=== PATIENT | male | born 1975 | race African-American/Black ===

== ENCOUNTER → 2019-08-04 14:42 | Outpatient (CLI) | payer OTHER, MEDICAID, SELFPAY ==
--- NOTE | ~2019-08-04 | MR_ITS ---
EXAMINATION: MR lumbar spine wo/w con DATE: 08/04/2019 19:04 INDICATION: Lumbago. TECHNIQUE: Magnetic resonance imaging (MRI) of the lumbar spine was performed without and with 18 L M ultiHance intravenous contrast. Sequences included sagittal T2-weighted FSE, sagittal T2-weighted FS FSE, and sagittal and axial T1-weighted FSE. Postcontrast sequences included axial T2-weighted FSE an d axial and sagittal T1-weighted FS FSE. COMPARISON: None FINDINGS: There is 11 degrees dextroscoliosis of thoracolumbar spine. Partially visualized are change s of posterior fusion procedure in thoracic spine. Vertebral body heights are normal. Intervertebral disc heights are normal in lumbar spine. The distal spinal cord signal intensity is normal. The conus medullaris is at L1-L2. The following disc levels are specifically discussed: L1-L2: The disc does not extend beyond the endplate margin. There is severe right and moderate left f acet joint osteoarthritis. There is no neural foraminal stenosis. There is no central canal stenosis. L2-L3: The disc does not extend beyond the endplate margin. There is mild bilateral facet joint osteo arthritis. There is no neural foraminal stenosis. There is no central canal stenosis. L3-L4: The disc does not extend beyond the endplate margin. There is moderate bilateral facet joint o steoarthritis. There is no neural foraminal stenosis. There is no central canal stenosis. L4-L5: The disc does not extend beyond the endplate margin. There is mild bilateral facet joint osteo arthritis. There is no neural foraminal stenosis. There is no central canal stenosis. L5-S1: The disc does not extend beyond the endplate margin. There is moderate bilateral facet joint o steoarthritis. There is mild bilateral neural foraminal stenosis. There is no central canal stenosis. IMPRESSION: 1. Mild lumbar spondylosis. 2. Thoracolumbar dextroscoliosis. Reviewed, dictated and finalized at location A. 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
--- NOTE | ~2019-08-04 | MR_ITS ---
EXAMINATION: MR thoracic spine wo/w con EXAM DATE: 08/04/2019 19:03 INDICATION: Thoracic pain. TECHNIQUE: Multi-sequential, multiplanar MR images of the thoracic spine were obtained without contra st. Sagittal T1, T2, T2 fat saturation, axial T2 weighted images reviewed. Axial T1 weighted sequenc e. Patient was then injected with 18 mL Multihance intravenous contrast and reimaged. Postcontrast axial and sagittal T1-weighted fat saturation sequences were obtained. Correlation is made to CT ches t 08/03/2017. FINDINGS: There is severe thoracic scoliosis which has been treated with Zaldivar rods. There is la rge right lateral paraspinal loculated fluid collection, could be a meningocele or loculated pleural effusion. No evidence of solid component. This is incompletely imaged but based on prior CT of to abo ut 12 cm. This has been a chronic finding and has likely been previously worked up. There is large am ount of artifact from the Zaldivar rods, cannot identify a definite direct communication between th is fluid and the spinal canal. There is fatty infiltration of the paraspinal musculature, atrophy. There is also ill-defined mass in the right posterior paraspinal subcutaneous fat which demonstrates enhancement, insinuates within the fat, and also with skin thickening. Difficult to measure this give n that there is no discrete mass, but its approximately 10 cm in diameter by about 2.5 cm in thicknes s. Could be peripheral nerve sheath tumor, vascular malformation, scarring from surgery. This is also a chronic finding. IMPRESSION: 1. Severe scoliosis with limitations from cervicothoracic Zaldivar rods. 2. Right lateral paraspinal, intrathoracic cystic mass could be large meningocele, loculated pleural effusion. Chronic. 3. Large right posterior thoracic ill-defined subcutaneous enhancing mass, could be scar tissue, per ipheral nerve sheath tumor, vascular malformation. Chronic. Reviewed, dictated and finalized at location B. 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 Severe scoliosis with limitations from cervicothoracic Zaldivar rods. 2. Right lateral paraspinal, intrathoracic cystic mass could be large meningoc lilli, loculated pleural effusion. Chronic. 3. Large right posterior thoracic ill-defined subcutaneous enhancing mass, cou ld be scar tissue, peripheral nerve sheath tumor, vascular malformation. Chroni c.
[2019-08-04 15:27] LABS: Blood Urea Nitrogen 8 mg/dL (8-26); Estimated Glomerular Filt Rate > 60
== END ==
PROVIDERS: PCP Internal Medicine; Visit Provider Nurse Practitioner Family
DX: M54.5 Low back pain (principal); M41.9 Scoliosis, unspecified; M47.896 Other spondylosis, lumbar region
CPT/HCPCS: 72157; 72158; A9577

== ENCOUNTER 2020-04-03 09:58 | Outpatient (CLI) | payer MEDICARE, MEDICAID, SELFPAY ==
--- NOTE | ~2020-04-03 | US_ITS ---
EXAMINATION: US soft tissue chest DATE: 04/03/2020 10:33 INDICATION: Left anterior chest wall mass. TECHNIQUE: Multiple grayscale and Doppler ultrasound images of the left anterior chest wall were obta ined. COMPARISON: Chest CT 08/03/2017 FINDINGS: There is no abnormal mass in the left anterior chest wall in the patient's area of concern. IMPRESSION: 1. No abnormal mass in the left anterior chest wall in the patient's area of concern. Reviewed, dictated and finalized at location A. IMPRESSION: 1. No abnormal mass in the left anterior chest wall in the patient's area of co ncern.
== END 2020-04-03 09:59 | disposition home or self-care (01) ==
PROVIDERS: PCP Internal Medicine; Visit Provider Internal Medicine
DX: R22.2 Localized swelling, mass and lump, trunk (principal)
CPT/HCPCS: 76604

== ENCOUNTER 2021-04-16 19:01 | Emergency (ER) | payer MEDICARE, MEDICAID, SELFPAY ==
--- NOTE | ~2021-04-16 | XR_ITS ---
XR chest 2V 04/16/2021 19:37 Indication: Intermittent shortness of breath. COPD. Hypertension. Procedure: 2 view chest Comparison: 06/15/2017 Findings: There are Zaldivar rods with scoliosis. Chronic deformity of the chest cavity. There is a large right pleural effusion with underlying compressive atelectasis. The previously identified mass in the right lung is obscured by pleural effusion. Neural stimulator leads overlying the thoracic sp ine. Impression: 1: Large right pleural effusion with underlying compressive atelectasis. Reviewed, dictated and finalized at location A. Impression: 1: Large right pleural effusion with underlying compressive atelectasis.
[2021-04-16 19:07] VITALS: BP 124/78; PULSE 135; RESP 18; TEMP 36.7; O2SAT 96
--- NOTE | 2021-04-16 19:10 | ECG_ITS ---
Measurements Intervals [place] Rate: 133 P: 49 PA: 147 QRS: -12 QRSD: 89 T: 57 QT: 303 QTc: 452 Interpretive Statements SINUS TACHYCARDIA INCOMPLETE RIGHT BUNDLE BRANCH BLOCK ABNORMAL ECG Electronically Signed On 04-16-2021 19:53:03 CDT by Nirmal Montague D.O.
[2021-04-16 19:33] LABS: Basophils Absolute Auto 0.1 K/mm3 (0.0-0.1); Basophils Percent Auto 0.2 % (0.2-1.2); Eosinophils Percent Auto 0.1 % (0-4.4); Hematocrit 33.1 % (42.0-52.0); Hemoglobin 10.9 g/dL (14.0-18.0); Immature Granulocyte Absolute 0.26 K/mm3 (0.00-0.031); Lymphocytes Absolute Auto 1.58 K/mm3 (0.9-3.2); Lymphocytes Percent Auto 6.1 % (18.3-44.2); Mean Corpuscular HGB Conc 32.9 g/dl (32-36); Mean Corpuscular Hemoglobin 23.7 pg (26-34); Mean Corpuscular Volume 72.1 fl (80-100); Mean Platelet Volume 9.2 fl (7.4-10.4); Monocytes Absolute Auto 3.8 K/mm3 (0.1-0.6); Monocytes Percent Auto 14.7 % (2.6-8.5); Neutrophils Absolute Auto 20.2 K/mm3 (1.3-6.7); Neutrophils Percent Auto 77.9 % (45.5-73.1); Platelet Count Result 355 k/mm3 (150-375); Red Blood Count 4.59 M/mm3 (4.6-6.20); White Blood Count 25.9 K/mm3 (4.5-10.0)
--- NOTE | 2021-04-16 19:36 | PC.NURSE ---
Please call family member at [phone] Pt states I think
[2021-04-16 19:52] LABS: Anion Gap 6 mmol/L (8-16); Blood Urea Nitrogen 14 mg/dL (9-20); Carbon Dioxide 31 mmol/L (22-30); Chloride 97 mmol/L (98-107); Estimated CRCL calculation 99 ml/min; Estimated Glomerular Filt Rate > 60; Glucose 105 mg/dL (65-110); Potassium 4.3 mmol/L (3.4-5.0); Sodium 134 mmol/L (137-145)
--- NOTE | 2021-04-16 21:28 | PC.NURSE ---
pt. up to front end specialist asking home much longer. RN updated pt. we are working on getting beds available. pt. states I cannot wait that long I will come back in the morning. Pt. wheeled self out of triage in personal wheelchair. pt. in NAD upon departure and advised to seek medical tx. if ss worsen.
== END 2021-04-17 03:30 | disposition left against medical advice (07) ==
PROVIDERS: Emergency Medicine; PCP Internal Medicine
DX: R53.1 Weakness (principal)
CPT/HCPCS: 36415; 71046; 80048; 85025; 93005; 99199

== ENCOUNTER 2021-04-17 01:44 | Inpatient (IN) | payer MEDICARE, MEDICAID, SELFPAY ==
[2021-04-17] VITALS (17 sets, daily range): BP systolic 116–227; BP diastolic 77–86; PULSE 112–150; RESP 12–20; TEMP 36.4–37.3; O2SAT 94–100
--- NOTE | ~2021-04-17 | CT_ITS ---
EXAMINATION: CT diagnostic chest w con DATE: 04/17/2021 03:37 INDICATION: Pleural effusion and fever TECHNIQUE: Transaxial computed tomographic images of the chest were obtained after the administration of 75 cc of Omnipaque 350 intravenous contrast. The dose-length product (DLP) was 606.94 mGy-cm. Ite rative reconstruction was used. COMPARISON: 08/03/2017 FINDINGS: There is a chronic mass in the right hemithorax which measures approximately 12.3 x 8.8 x 9 .2 cm. Overall, there has been no change since the comparison examination. There is a moderate-sized right pleural effusion. There is passive atelectasis of the right lung. The heart size is normal. The re are no pathologically enlarged thoracic lymph nodes. There is mild dependent atelectasis of the le ft lung. No pneumothorax is identified. A small amount of ingested material is seen in the midesophag us. Also noted is a large area of soft tissue thickening of the right posterior chest wall without si gnificant change in size. There is instrument of posterior fusion from C6 through T11. Again noted is likely developmental deformity of the T3-T6 vertebral bodies. The right adrenal gland is not identif ied, likely surgically resected IMPRESSION: 1. Moderate size right pleural effusion with passive atelectasis. 2. No significant change in a chronic mass of the right hemithorax with differential as previously de scribed including peripheral nerve sheath tumor, neurogenic tumor, fibrous tumor of the pleura, and l ateral meningocele. 3. Chronic subcutaneous mass of the right posterior chest wall with unchanged differential including peripheral nerve sheath tumor, venous malformation, and scarring. Reviewed, dictated and finalized at location A. IMPRESSION: 1. Moderate size right pleural effusion with passive atelectasis. 2. No significant change in a chronic mass of the right hemithorax with differe ntial as previously described including peripheral nerve sheath tumor, neurogen ic tumor, fibrous tumor of the pleura, and lateral meningocele. 3. Chronic subcutaneous mass of the right posterior chest wall with unchanged d ifferential including peripheral nerve sheath tumor, venous malformation, and s carring.
--- NOTE | ~2021-04-17 | CT_ITS ---
EXAMINATION: CTA chest PE protocol DATE: 04/20/2021 15:29 CDT INDICATION: Acute respiratory failure. Cardiac arrest. TECHNIQUE: Computed tomographic angiography (CTA) of the chest was performed with 100 mL Omnipaque-35 0 intravenous contrast. The dose-length product was 1013.79 mGy-cm. Maximum intensity projection 3D-r econstructions of the aorta and other arteries were constructed by the technologist on a separate wor kstation. COMPARISON: None. FINDINGS: Evaluation of the lower lobe segmental and subsegmental pulmonary arteries limited by motio n artifact. No large central pulmonary embolism. Large right pleural effusion. Small left pleural eff usion. Cardiomegaly. No evidence for aortic aneurysm or dissection. Small amount of ascites in the up per abdomen. There is patchy bilateral airspace disease. Right-sided consolidation likely represents compressive atelectasis, although patchy left-sided consolidation is suspicious for pneumonia. There is an endotracheal tube present. NG tube in the stomach. IMPRESSION: 1. Patchy bilateral airspace disease which may represent pneumonia and/or atelectasis. 2: No large central pulmonary embolism. 3: Large right and small left pleural effusions. 4: Small amount of ascites. Reviewed, dictated and finalized at location A. IMPRESSION: 1. Patchy bilateral airspace disease which may represent pneumonia and/or atele ctasis. 2: No large central pulmonary embolism. 3: Large right and small left pleural effusions. 4: Small amount of ascites.
--- NOTE | ~2021-04-17 | XR_ITS ---
EXAMINATION: XR chest ET placement EXAM DATE: 04/20/2021 04:09 INDICATION: TECHNIQUE: Portable AP frontal chest x-ray was obtained. Comparison is made to prior examination from 04/16. FINDINGS: Endotracheal tube is in position. There is large amount of right lung airspace disease, combination of effusion, atelectasis with possi bility of underlying pneumonia or cancer. Left-sided pulmonary vascular congestion. There is no pneum othorax suspected. The cardiac silhouette is enlarged. Thoracic Zaldivar rods. Spine stimulator leads. There is no significant interval change compared to prior exam. IMPRESSION: 1. ET tube in position. 2. Nearly collapsed right lung, adjacent lobar atelectasis. Underlying pneumonia or cancer not exclu dable. Reviewed, dictated and finalized at location A. IMPRESSION: 1. ET tube in position. 2. Nearly collapsed right lung, adjacent lobar atelectasis. Underlying pneumon ia or cancer not excludable.
--- NOTE | ~2021-04-17 | CT_ITS ---
EXAMINATION: CT cervical spine wo con DATE: 04/17/2021 03:36 INDICATION: Acute neck pain TECHNIQUE: Computed tomography (CT) of the cervical spine was performed without intravenous contrast. The dose-length product (DLP) was 556.91 mGy-cm. Automated exposure control and iterative reconstruc tion technique were employed. COMPARISON: None FINDINGS: There are changes of C6 through thoracic spine posterior fusion. No fracture is identified. There is reversal of the normal cervical lordosis. The vertebral body heights are maintained. There is mild loss of intervertebral disc space height throughout the cervical spine. The odontoid is intac t. Heterotopic posterior location is seen near the C5 spinous process. There is mild multilevel facet and uncovertebral joint osteoarthritis. Partially imaged airspace opacities seen in the right lung a pex, discussed on chest CT. IMPRESSION: 1. Changes of C6 through thoracic spine posterior fusion without acute abnormality of the cervical sp ine. Reviewed, dictated and finalized at location A. IMPRESSION: 1. Changes of C6 through thoracic spine posterior fusion without acute abnormal ity of the cervical spine.
--- NOTE | ~2021-04-17 | XR_ITS ---
EXAMINATION: XR chest port-a-cath/central EXAM DATE: 04/20/2021 06:06 INDICATION: Central line placement TECHNIQUE: Portable AP frontal chest x-ray was obtained. Comparison is made to prior examination from 04/16, earlier 04/20. FINDINGS: Endotracheal tube tip is 4-5 centimeters above the linda. Uncertain whether or not there is a nasogastric tube in place. There is a new right-sided internal jugular venous line in position. There is completely opacified right hemithorax unchanged. There is evidence of pulmonary vascular con gestion and left-sided nonconfluent airspace disease which could be edema or scattered atelectasis. C orrelate with recent CT pulmonary report. There is no pneumothorax suspected. Mediastinum obscur ed by leads, thoracic hardware. There is no significant interval change compared to prior exam 04/20. IMPRESSION: 1. Endotracheal, right IJ venous lines in position. 2. Opacified right hemithorax; correlate with recent CT pulmonary report. 3. Cardiomegaly, congestion. Left-sided atelectasis an/or edema. Reviewed, dictated and finalized at location A.
--- NOTE | ~2021-04-17 | XR_ITS ---
EXAMINATION: XR chest 1V portable EXAM DATE: 04/21/2021 05:44 INDICATION: Respiratory failure, cardiac arrest . TECHNIQUE: Portable AP frontal chest x-ray was obtained. Comparison is made to prior examination from 04/20. FINDINGS: Endotracheal tube tip is probably 4-5 centimeters above the linda, appears to be adequatel y positioned but obscured by thoracic Zaldivar rods. Probable identification of a nasogastric tube , tip below the diaphragm level. There is a new right-sided internal jugular venous line in position. There is completely opacified right hemithorax, a large pleural effusion unchanged. There is evidence of pulmonary vascular congestion and left-sided nonconfluent airspace disease which could be atelect asis, pneumonia or edema . Correlate with yesterday's CT pulmonary report. There is no pneumothora x suspected. There is no significant interval change compared to prior exam 04/20. IMPRESSION: 1. Tubes, right IJ venous lines in position. 2. Large left pleural effusion, adjacent atelectasis. 3. Superimposed additional atelectasis, edema and/or pneumonia. Reviewed, dictated and finalized at location A.
--- NOTE | ~2021-04-17 | CT_ITS ---
EXAMINATION: CTA chest PE protocol DATE: 04/19/2021 11:25 INDICATION: Hypoxia TECHNIQUE: Computed tomography angiography (CTA) of the chest was performed with 100 mL Omnipaque-350 intravenous contrast timed to evaluate the pulmonary arteries. Coronal maximum intensity projection 3D-reconstructions were created by the technologist. The dose-length product (DLP) was 734.54 mGy-cm. Automated exposure control and iterative reconstruction technique were employed. COMPARISON: 04/17/2021 FINDINGS: The pulmonary arteries are well-opacified. No pulmonary embolism is identified, sensitivity slightly limited by motion artifact. A chronic mass of the right hemithorax is unchanged. There is i nterval increase in size of a now large right pleural effusion. The entire right lung is now either c ollapse or involved by airspace opacity. Airspace opacities have developed in the left lung. There is no pneumothorax. The heart size is normal. Again noted is instrumented posterior fusion from C6 through T11 with chronic and unchanged neurofora jack enlargement at multiple levels. There is also an unchanged area of skin thickening right paperhanger supervisor ior chest wall. IMPRESSION: 1. No pulmonary embolus identified, sensitivity limited by motion artifact. 2. Large right pleural effusion with atelectasis and pneumonia involving the entire right lung. 3. New airspace opacities of the left lung, consistent with pneumonia. 4. Chronic masses of the right hemithorax and right posterior chest wall with differential as previou sly described. Reviewed, dictated and finalized at location A. IMPRESSION: 1. No pulmonary embolus identified, sensitivity limited by motion artifact. 2. Large right pleural effusion with atelectasis and pneumonia involving the en tire right lung. 3. New airspace opacities of the left lung, consistent with pneumonia. 4. Chronic masses of the right hemithorax and right posterior chest wall with d ifferential as previously described.
[2021-04-17] MEDS: MORPHINE SULFATE (*CRX) 4 MG/ML INJ IV PUSH (02:23)
[2021-04-17] MEDS: ONDANSETRON INJ 4 MG/2 ML VIAL IV PUSH (02:23)
--- NOTE | 2021-04-17 02:39 | ED.GENADULT ---
HPI - General Adult General Chief complaint: Unspecified Stated complaint: body aches x 1 weeks , elevated heart rate Time Seen by Provider: 04/17/21 01:44 Source: patient Mode of arrival: ambulatory Limitations: no limitations History of Present Illness HPI narrative: This is a 45 year old male with history of Neurofibromytosis, chronic anemia who presents for evaluation of pain all over. Patient states received his first dose of covid vaccine 5 days ago and he developed pain all over 2 days later. He reports pain in all his extremities and his neck. 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 He denies fever, chills, chest pain, shortness of breath, abdominal pain, nausea, vomiting. He came to ER several hours ago but he left due to long wait. Related Data Home Medications Medication Instructions Recorded Confirmed Lactobacillus acidophilus 680 mg PO DAILY 04/10/21 04/17/21 acetaminophen 500 mg capsule 500 mg PO Q6H PRN 04/10/21 04/17/21 amlodipine 5 mg tablet 5 mg PO DAILY 04/10/21 04/17/21 budesonide-formoterol HFA 80 2 puff INHALATION Q12H 04/10/21 04/17/21 mcg-4.5 mcg/actuation aerosol inhaler cholecalciferol (vitamin D3) 25 25 mcg PO DAILY 04/10/21 04/17/21 mcg (1,000 unit) capsule cyanocobalamin (vitamin B-12) 500 500 mcg PO DAILY 04/10/21 04/17/21 mcg lozenges diazepam 5 mg tablet 10 mg PO HS 04/10/21 04/17/21 docusate sodium 100 mg capsule 100 mg PO DAILY 04/10/21 04/17/21 duloxetine 30 mg capsule,delayed 90 mg PO DAILY 04/10/21 04/17/21 release gabapentin 600 mg tablet 1,200 mg PO HS 04/10/21 04/17/21 lancets 04/10/21 methocarbamol 500 mg tablet 500 mg PO QPM 04/10/21 04/17/21 nitrofurantoin 100 mg capsule 100 mg PO Q12H 04/10/21 04/17/21 rizatriptan 10 mg tablet See Rx Instructions PO .COMPLEX 04/10/21 04/17/21 tolterodine 4 mg capsule,extended 4 mg PO DAILY 04/10/21 04/17/21 release 24 hr trazodone 50 mg tablet 50 mg PO QHS PRN 04/10/21 04/17/21 zolpidem 10 mg tablet 10 mg PO QHS PRN 04/10/21 04/17/21 acetaminophen 1,300 mg PO Q8H PRN 04/17/21 04/17/21 Allergies Allergy/AdvReac Type Severity Reaction Status Date / Time oxybutynin Allergy Intermediate rash Verified 04/11/21 10:02 Review of Systems Review of Systems: All systems reviewed & are unremarkable except as noted in HPI and below Constitutional: Constitutional: Reports body ache(s) and Denies fever(s) Eyes: Eyes: Denies exophthalmos ENT: Denies nasal congestion, Denies nasal discharge and Denies sore throat Cardiovascular: Cardiovascular: Denies chest pain with activity, Denies lightheadedness, Denies palpitations, Denies dyspnea and Denies orthopnea Respiratory: Respiratory: Denies chest congestion, Denies cough, Denies hemoptysis and Denies dyspnea Gastrointestinal: Gastrointestinal: Denies abdominal pain, Denies diarrhea and Denies vomiting Musculoskeletal: Musculoskeletal: Reports muscle cramps, Reports muscle weakness (chronic) and Reports neck pain PMFSH Past Medical History Medical History (Updated 04/17/21 @ 08:14 by Christophe Hudson MD) Arthritis COPD (chronic obstructive pulmonary disease) 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 Hypertension Iron deficiency anemia Neurofibromatosis Stroke Surgical History Surgical History (Updated 04/17/21 @ 05:06 by Flor Alcantara MD) Previous back surgery Family History Family History Other Diabetes mellitus Hypertension Social History Social History (Updated 04/11/21 @ 10:05 by Catalina Thorpe CMA) Smoking status: Former smoker Smoking end date: 06/22/00 Alcohol intake: current Alcohol use details: social Substance use: never Substance use type: does not use Spiritual care concerns: No Exam Const: General: cooperative, no acute distress, alert, awake and Physically active; No diaphor
[2021-04-17] MEDS: LACTATED RINGERS 1,000 ML 999 ML IV CONT ×2 (02:45→04:20)
[2021-04-17 03:09] LABS: Add Urine Microscopic? YES; Appearance Urine Cloudy (Clear); Bacteria Urine Trace /hpf; Bilirubin Urine Negative (Negative); Blood Urine 3+ (Negative); Color Urine Amber (Yellow); Glucose Urine UA Negative (Negative); Ketones Urine 1+ mg/dL (Negative); Leukocyte Esterase Ur 3+ LEU/UL (Negative); Mucus Urine Few /lpf; Nitrate Urine Positive (Negative); Protein Urine 2+ mg/dL (Negative); RBC Urine 21-50 /hpf (0-2); Specific Grav Ur 1.018 (1.001-1.035); Squamous Epithelial Cell Urine Rare /hpf (Few); Urobilinogen Urine Negative mg/dL (<2.0); WBC Clumps Urine Present /HPF; WBC Urine >75 /hpf
[2021-04-17 03:13] LABS: INR 1.1; Prothrombin Time 13.7 Seconds (11.1-14.7)
[2021-04-17] MEDS: HYDROmorphone HCL INJ (*CRX) 1 MG/ML SYR 0.5 MG IV PUSH ×2 (03:13→16:31)
[2021-04-17 03:14] LABS: Partial Thromboplastin Time 41.5 SECONDS (22.3-36.8)
[2021-04-17 03:16] LABS: Creatine Kinase 301 U/L (55-170)
[2021-04-17 03:51] LABS: NT Pro B Type Natriuretic Pept 93 pg/mL (5-100); Troponin I < 0.012 ng/mL (0.000-0.034)
--- NOTE | 2021-04-17 05:59 | ADMGEN ---
This patient, Mohit Powell, was admitted to IMU Room 207-01 at 0600. Patient/family oriented to hospital policies and general routines including ID bracelet, bed and alarms, visiting hours, pain management, procedures, bathroom and other care routines, personal items, smoking policy, room service/diet, and visiting hours. Information on how to activate the Rapid Response Team has been discussed. Patient/Family are encouraged to report perceived risks to care and to ask questions if they do not understand what they are told or what they should do.
[2021-04-17 06:23] LABS: Basophils Percent Auto 0.2 % (0.2-1.2); Eosinophils Absolute Auto 0.1 K/mm3 (0-0.3); Eosinophils Percent Auto 0.2 % (0-4.4); Hematocrit 34.8 % (42.0-52.0); Hemoglobin 11.3 g/dL (14.0-18.0); Immature Granulocyte Absolute 0.16 K/mm3 (0.00-0.031); Immature Granulocyte Percent A 0.7 % (0-0.5); Lymphocytes Absolute Auto 1.67 K/mm3 (0.9-3.2); Lymphocytes Percent Auto 7.7 % (18.3-44.2); Mean Corpuscular HGB Conc 32.5 g/dl (32-36); Mean Corpuscular Hemoglobin 23.9 pg (26-34); Mean Corpuscular Volume 73.6 fl (80-100); Mean Platelet Volume 9.3 fl (7.4-10.4); Monocytes Absolute Auto 2.7 K/mm3 (0.1-0.6); Monocytes Percent Auto 12.5 % (2.6-8.5); Neutrophils Absolute Auto 17.1 K/mm3 (1.3-6.7); Neutrophils Percent Auto 78.7 % (45.5-73.1); Platelet Count Result 335 k/mm3 (150-375); Red Blood Count 4.73 M/mm3 (4.6-6.20); Red Cell Distribution Width 22.1 % (11.5-14.5); White Blood Count 21.7 K/mm3 (4.5-10.0)
[2021-04-17 06:25] LABS: Alanine Aminotransferase 12 U/L (4-50); Albumin Level 3.2 g/dL (3.5-5.1); Alkaline Phosphatase 73 U/L (38-126); Anion Gap 8 mmol/L (8-16); Aspartate Amino Transferase 22 U/L (17-59); Bilirubin,Total 0.4 mg/dL (0.2-1.3); Blood Urea Nitrogen 14 mg/dL (9-20); Calcium 8.7 mg/dL (8.4-10.2); Carbon Dioxide 29 mmol/L (22-30); Chloride 99 mmol/L (98-107); Estimated CRCL calculation 112 ml/min; Estimated Glomerular Filt Rate > 60; Glucose 97 mg/dL (65-110); Potassium 3.8 mmol/L (3.4-5.0); Sodium 136 mmol/L (137-145)
--- NOTE | 2021-04-17 08:00 | PM.IMHP ---
H&P: HPI History of Present Illness Date/Time: 04/17/21 08:00 45-year-old male past medical history of neurofibromatosis presenting with generalized pain since Thursday. He says that Thursday he got the COVID vaccine for the 1st time, and around Thursday started feeling generalized pain. Describes the pain as a burning sensation moderate to severe 5 to 7/10 all over his body arms legs abdominal. Never had these issues before, no other symptoms. Denies fevers chills shortness of breath chest pain abdominal symptoms. Took some NSAIDs at home, only marginal relief. Denies all urinary symptoms including polyuria, dysuria, hematuria. Past medical history: Neurofibromatosis Allergies: Oxybutynin gives him a rash Medications: As documented below ER Course: vitals: BP 220s/80s, HR 110s Labs: WBC 26 to 21.7, hgb 10.9 to 11.3 CK 301, CRP 9 trop bnp normal 3+ Leuk esterase in UA COVID pending Chest CT: moderate rt pleural effusion; chronic neurofibromatosis changes in right hemithorax, stable Chief Complaint: Generalized pain Review of Systems Review of Systems: All systems reviewed & are unremarkable except as noted in HPI and below PMFSH Past Medical History Medical History (Updated 04/17/21 @ 08:14 by Christophe Hudson MD) Arthritis COPD (chronic obstructive pulmonary disease) 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 Hypertension Iron deficiency anemia Neurofibromatosis Stroke Surgical History Surgical History (Updated 04/17/21 @ 05:06 by Flor Alcantara MD) Previous back surgery Family History Family History Other Diabetes mellitus Hypertension Social History Social History (Updated 04/11/21 @ 10:05 by Catalina Thorpe CMA) Smoking status: Former smoker Smoking end date: 06/22/00 Alcohol intake: current Alcohol use details: social Substance use: never Substance use type: does not use Spiritual care concerns: No Meds Home Medications and Allergies Home Medications Medication Instructions Recorded Confirmed Type Lactobacillus acidophilus 680 mg PO DAILY 04/10/21 04/17/21 History acetaminophen 500 mg capsule 500 mg PO Q6H PRN 04/10/21 04/17/21 History alcohol swabs pad TOPICAL 04/10/21 History amlodipine 5 mg tablet 5 mg PO DAILY 04/10/21 04/17/21 History budesonide-formoterol HFA 80 2 puff INHALATION Q12H 04/10/21 04/17/21 History mcg-4.5 mcg/actuation aerosol inhaler butalbital 50 mg-acetaminophen 300 1 cap PO Q4H PRN 04/10/21 04/17/21 History mg-caffeine 40 mg-codeine 30 mg cap cholecalciferol (vitamin D3) 25 25 mcg PO DAILY 04/10/21 04/17/21 History mcg (1,000 unit) capsule cyanocobalamin (vitamin B-12) 500 500 mcg PO DAILY 04/10/21 04/17/21 History mcg lozenges diazepam 5 mg tablet 5 mg PO BID PRN 04/10/21 04/17/21 History docusate sodium 100 mg capsule 100 mg PO DAILY 04/10/21 04/17/21 History duloxetine 30 mg capsule,delayed 30 mg PO DAILY 04/10/21 04/17/21 History release gabapentin 600 mg tablet 600 mg PO BID 04/10/21 04/17/21 History lancets 04/10/21 History methocarbamol 500 mg tablet 500 mg PO QHS 04/10/21 History nitrofurantoin 100 mg capsule 100 mg PO Q12H 04/10/21 04/17/21 History rivaroxaban 20 mg tablet 20 mg PO DAILY 04/10/21 04/17/21 History rizatriptan 10 mg tablet See Rx Instructions PO .COMPLEX 04/10/21 04/17/21 History temazepam 15 mg capsule 15 mg PO QHS 04/10/21 04/17/21 History tolterodine 4 mg capsule,extended 4 mg PO DAILY 04/10/21 04/17/21 History release 24 hr trazodone 50 mg tablet 50 mg PO QHS PRN 04/10/21 04/17/21 History zolpidem 10 mg tablet 10 mg PO QHS PRN 04/10/21 04/17/21 History Allergies Allergy/AdvReac Type Severity Reaction Status Date / Time oxybutynin Allergy Intermediate rash Verified 04/11/21 10:02 Vital Signs Vital Signs - 24 hr 04/17/21 01:46 04/17/21 01:56 04/17/21 03:46 Temperature 98.1 F 97.9 F Pulse Rate 142 H 143 H 138 H Respira
[2021-04-17 09:29] LABS: Lactate Dehydrogenase 305 U/L (313-618)
[2021-04-17 09:36] LABS: Reticulocyte Hemoglobin Conten 28.7 pg (28.2-35.7); Reticulocyte Percent 1.16 % (0.7-4.3); Reticulocytes Absolute 0.05 B/L (32.2-175.7)
[2021-04-17] MEDS: LACTATED RINGERS 1,000 ML 125 ML IV CONT ×2 (09:36→16:30)
[2021-04-17 09:37] LABS: Transferrin 91 mg/dL (206-381)
[2021-04-17 10:13] LABS: Thyroid Stimulating Hormone Reflex 0.407 uIU/mL (0.465-4.68)
[2021-04-17 10:37] LABS: Folic Acid 4.3 ng/mL (2.76->20)
[2021-04-17 11:32] LABS: Iron 25 ug/dL (49-181)
[2021-04-17 11:53] LABS: Percent Iron Saturation 16 % (20-50)
[2021-04-17 12:37] LABS: Free T4 Free Thyroxine Reflex 1.88 ng/dL (0.78-2.19)
[2021-04-17 15:17] LABS: Total Triiodothyronine (T3) 1.39 NG/ML (0.97-1.69)
[2021-04-17 17:35] LABS: SARS-CoV-2 RNA PCR Negative
[2021-04-17] MEDS: amLODIPine BESYLATE 5 MG TABLET PO (18:00)
[2021-04-17] MEDS: ACIDOPHILUS/BULGARICUS CHEWABLE TABLET 1 TABLET PO (18:00)
[2021-04-17] MEDS: CHOLECALCIFEROL 1,000 UNITS TABLET 1000 UNITS PO (18:00)
[2021-04-17] MEDS: DOCUSATE SODIUM 100 MG CAPSULE PO (18:00)
[2021-04-17] MEDS: CYANOCOBALAMIN 500 MCG TABLET PO (18:00)
[2021-04-17] MEDS: GABAPENTIN 300 MG CAPSULE 600 MG PO ×2 (18:01)
[2021-04-17] MEDS: diazePAM (*CRX) 10 MG TABLET PO (21:54)
[2021-04-17] MEDS: traZODone HCL 50 MG TABLET PO (21:55)
[2021-04-18] VITALS (19 sets, daily range): BP systolic 118–155; BP diastolic 67–93; PULSE 130–158; RESP 16–24; TEMP 35.6–37.1; O2SAT 92–100
[2021-04-18] MEDS: LACTATED RINGERS 1,000 ML 125 ML IV CONT ×3 (01:58→20:07)
[2021-04-18] MEDS: traMADol HCL (*CRX) 50 MG TABLET PO ×2 (04:49→15:47)
[2021-04-18] MEDS: HYDROmorphone HCL INJ (*CRX) 1 MG/ML SYR IV PUSH (05:16)
[2021-04-18 05:44] LABS: Basophils Absolute Auto 0.1 K/mm3 (0.0-0.1); Basophils Percent Auto 0.2 % (0.2-1.2); Eosinophils Percent Auto 0.1 % (0-4.4); Hemoglobin 11.1 g/dL (14.0-18.0); Immature Granulocyte Absolute 0.28 K/mm3 (0.00-0.031); Immature Granulocyte Percent A 1.1 % (0-0.5); Lymphocytes Absolute Auto 1.98 K/mm3 (0.9-3.2); Lymphocytes Percent Auto 7.7 % (18.3-44.2); Mean Corpuscular HGB Conc 32.6 g/dl (32-36); Mean Corpuscular Hemoglobin 23.5 pg (26-34); Mean Corpuscular Volume 71.9 fl (80-100); Mean Platelet Volume 9.5 fl (7.4-10.4); Monocytes Percent Auto 15.5 % (2.6-8.5); Neutrophils Absolute Auto 19.5 K/mm3 (1.3-6.7); Neutrophils Percent Auto 75.4 % (45.5-73.1); Nucleated Red Blood Cells Perc 0.1 % (0.0-0.2); Platelet Count Result 390 k/mm3 (150-375); Red Blood Count 4.73 M/mm3 (4.6-6.20); Red Cell Distribution Width 21.6 % (11.5-14.5); White Blood Count 25.8 K/mm3 (4.5-10.0)
[2021-04-18 06:04] LABS: Alanine Aminotransferase 17 U/L (4-50); Albumin Level 2.8 g/dL (3.5-5.1); Alkaline Phosphatase 127 U/L (38-126); Anion Gap 11 mmol/L (8-16); Aspartate Amino Transferase 25 U/L (17-59); Bilirubin,Total 0.4 mg/dL (0.2-1.3); Blood Urea Nitrogen 15 mg/dL (9-20); Calcium 8.7 mg/dL (8.4-10.2); Carbon Dioxide 25 mmol/L (22-30); Chloride 97 mmol/L (98-107); Estimated CRCL calculation 112 ml/min; Estimated Glomerular Filt Rate > 60; Glucose 89 mg/dL (65-110); Potassium 4.1 mmol/L (3.4-5.0); Sodium 133 mmol/L (137-145)
[2021-04-18 06:30] LABS: Platelet Estimate Adequate (Adequate); Poikilocytosis 1+ (NORMAL); Target Cells 1+ (NORMAL)
--- NOTE | 2021-04-18 07:27 | PM.IMPN ---
Progress Note: A&P Assessment and Plan (1) Sepsis: Code(s): A41.9 - Sepsis, unspecified organism Status: Acute Assessment and Plan: Meets criteria on admission with HR 110s and WBC 25.9 Source of infection is UTI - 3+ leuk esterase. Urine culture and Blood cultures ordered, negative so far. Continue CTX empirically until cultures available. LR at 125/hr, cautiously as bp elevated Suspect mild CK elevation related to dehydration (2) Microcytic anemia: Code(s): D50.9 - Iron deficiency anemia, unspecified Status: Acute Assessment and Plan: Hgb 11.3, MCV 73.6 on admission no overt source of bleed obtain iron studies, b12 & folate, reticulocyte, haptoglobin, etc. hold pharmalogic dvt ppx, will do scd instead (3) Neurofibromatosis: Code(s): Q85.00 - Neurofibromatosis, unspecified Status: Acute Additional Plan Urosepsis: 3+ leuk esterase in urine; as yet, no growth in blood or urine; empirically on ctx, however wbc climbing, will expand to vanc/zosyn continue LR at 125/hr Tachycardia: sinus tachy on telemetry, reviewed this am; possible but less likely related to hypovolemia, as bp actually hypertensive; no beta blockers in outpatient meds, will re-discuss with him today. TSH low at 0.407, will obtain Free t4 Microcytic Anemia: appears early stage Anemia chronic disease, as ferritin high & TIBC low; normal B12 & folate; unclear what underlying etiology is, will have to discuss; continue SCD for the time being Subjective Date/time seen: 04/18/21 07:27 no acute complaints resting comfortably in bed - appears anxious Review of Systems Review of Systems: All systems reviewed & are unremarkable except as noted in HPI and below Exam Const: General: no acute distress Neck: Neck: no JVD Resp: Effort & Inspection: normal respiratory effort Auscultation: clear to auscultation bilaterally Cardio: Rate: regular rate Rhythm: regular rhythm GI: Inspection: non-distended Objective Data Vital Signs Vital Signs: Vital Signs - 24 hr 04/17/21 07:50 04/17/21 08:00 04/17/21 10:00 Temperature 97.6 F Pulse Rate 117 H 128 H 120 H Respiratory Rate 12 Blood Pressure 130/81 Pulse Oximetry 100 100 04/17/21 12:00 04/17/21 14:00 04/17/21 16:00 Temperature 99.1 F 98.5 F Pulse Rate 132 H 141 H 147 H Respiratory Rate 12 12 Blood Pressure 129/80 130/85 Pulse Oximetry 98 100 04/17/21 18:00 04/17/21 19:31 04/17/21 20:00 Temperature 98.5 F Pulse Rate 144 H 140 H 137 H Respiratory Rate 12 Blood Pressure 130/85 Pulse Oximetry 100 98 04/17/21 21:17 04/17/21 22:00 04/18/21 00:00 Temperature 96.9 F L Pulse Rate 150 H 148 H Respiratory Rate 20 Blood Pressure 118/67 Pulse Oximetry 98 97 04/18/21 02:00 04/18/21 04:00 04/18/21 06:00 Temperature 97.7 F Pulse Rate 158 H 139 H 145 H Respiratory Rate 20 Blood Pressure 149/76 H Pulse Oximetry 94 Intake/Output Intake/Output: Intake & Output 04/15/21 04/16/21 04/17/21 04/18/21 23:59 23:59 23:59 23:59 Intake Total 3980 1250 Output Total 350 550 Balance 3630 700 Meds/Results Medications: Active Medications Generic Name Dose Route Start Last Admin Trade Name Freq PRN Reason Stop Dose Admin Amlodipine Besylate 5 mg 04/18/21 09:00 Amlodipine Besylate 5 Mg Tablet PO DAILY [facility] Budesonide/Formoterol Fumarate 2 puff 04/17/21 20:00 04/17/21 21:12 Budesonide/Form 80-4.5 Mcg (*Sp) INHALATION 2 puff Q12HRT [facility] Administration Cyanocobalamin 500 mcg 04/18/21 09:00 Cyanocobalamin 500 Mcg Tablet PO DAILY [facility] Diazepam 10 mg 04/17/21 21:00 04/17/21 21:54 Diazepam (*Crx) 10 Mg Tablet PO 10 mg HS [facility] Administration Docusate Sodium 100 mg 04/18/21 09:00 Docusate Sodium 100 Mg Capsule PO DAILY [facility] Duloxetine HCl 30 mg 04/18/21 09:00 Duloxetine Hcl 30 Mg Capsule.Dr PO DAILY [facility] Gabapentin 1,200 mg 04/18/21 21:00
[2021-04-18 08:16] LABS: Free T4 Free Thyroxine 2.29 ng/mL (0.78-2.19)
[2021-04-18] MEDS: CHOLECALCIFEROL 1,000 UNITS TABLET 1000 UNITS PO (09:19)
[2021-04-18] MEDS: amLODIPine BESYLATE 5 MG TABLET PO (09:20)
[2021-04-18] MEDS: DULoxetine HCL 30 MG CAPSULE.DR PO (09:20)
[2021-04-18] MEDS: ACIDOPHILUS/BULGARICUS CHEWABLE TABLET 1 TABLET PO (09:21)
[2021-04-18] MEDS: CYANOCOBALAMIN 500 MCG TABLET PO (09:21)
[2021-04-18] MEDS: DOCUSATE SODIUM 100 MG CAPSULE PO (09:37)
[2021-04-18] MEDS: SILVERGEL (ELTA) 45 ML 1 APPLIC TOPICAL (15:48)
[2021-04-18] MEDS: methiMAzole 10 MG TAB PO (20:07)
[2021-04-18] MEDS: diazePAM (*CRX) 10 MG TABLET PO (21:00)
[2021-04-18] MEDS: traZODone HCL 50 MG TABLET PO (21:00)
[2021-04-18] MEDS: GABAPENTIN 400 MG CAPSULE 1200 MG PO (21:00)
[2021-04-19] VITALS (19 sets, daily range): BP systolic 128–177; BP diastolic 86–99; PULSE 113–142; RESP 16–24; TEMP 36.1–38; O2SAT 92–100
[2021-04-19] MEDS: traMADol HCL (*CRX) 50 MG TABLET PO ×2 (00:25→22:18)
[2021-04-19] MEDS: ACETAMINOPHEN 500 MG TABLET 1000 MG PO (04:28)
[2021-04-19] MEDS: LACTATED RINGERS 1,000 ML 125 ML IV CONT ×2 (04:29→18:06)
[2021-04-19 05:26] LABS: Basophils Absolute Auto 0.1 K/mm3 (0.0-0.1); Basophils Percent Auto 0.2 % (0.2-1.2); Eosinophils Percent Auto 0.1 % (0-4.4); Hematocrit 31.6 % (42.0-52.0); Hemoglobin 10.3 g/dL (14.0-18.0); Immature Granulocyte Absolute 0.72 K/mm3 (0.00-0.031); Immature Granulocyte Percent A 2.5 % (0-0.5); Lymphocytes Absolute Auto 1.73 K/mm3 (0.9-3.2); Mean Corpuscular HGB Conc 32.6 g/dl (32-36); Mean Corpuscular Hemoglobin 23.6 pg (26-34); Mean Corpuscular Volume 72.3 fl (80-100); Mean Platelet Volume 9.9 fl (7.4-10.4); Monocytes Absolute Auto 3.9 K/mm3 (0.1-0.6); Monocytes Percent Auto 13.6 % (2.6-8.5); Neutrophils Absolute Auto 22.5 K/mm3 (1.3-6.7); Neutrophils Percent Auto 77.6 % (45.5-73.1); Platelet Count Result 369 k/mm3 (150-375); Red Blood Count 4.37 M/mm3 (4.6-6.20); Red Cell Distribution Width 21.7 % (11.5-14.5); White Blood Count 28.9 K/mm3 (4.5-10.0)
[2021-04-19 05:57] LABS: Alanine Aminotransferase 18 U/L (4-50); Albumin Level 2.5 g/dL (3.5-5.1); Alkaline Phosphatase 106 U/L (38-126); Aspartate Amino Transferase 25 U/L (17-59); Bilirubin,Total 0.3 mg/dL (0.2-1.3); Blood Urea Nitrogen 17 mg/dL (9-20); Calcium 8.4 mg/dL (8.4-10.2); Carbon Dioxide 28 mmol/L (22-30); Estimated CRCL calculation 116 ml/min; Estimated Glomerular Filt Rate > 60; Glucose 115 mg/dL (65-110); Phosphorus 3.9 mg/dL (2.5-4.5)
[2021-04-19 07:07] LABS: Anion Gap 9 mmol/L (8-16); Chloride 94 mmol/L (98-107); Potassium 4.6 mmol/L (3.4-5.0); Sodium 131 mmol/L (137-145)
--- NOTE | 2021-04-19 07:37 | PM.IMPN ---
Progress Note: A&P Assessment and Plan (1) Sepsis: Code(s): A41.9 - Sepsis, unspecified organism Status: Acute Assessment and Plan: Meets criteria on admission with HR 110s and WBC 25.9 Source of infection is UTI - 3+ leuk esterase. Urine culture and Blood cultures ordered, negative so far. Continue CTX empirically until cultures available. LR at 125/hr, cautiously as bp elevated Suspect mild CK elevation related to dehydration (2) Microcytic anemia: Code(s): D50.9 - Iron deficiency anemia, unspecified Status: Acute Assessment and Plan: Hgb 11.3, MCV 73.6 on admission no overt source of bleed obtain iron studies, b12 & folate, reticulocyte, haptoglobin, etc. hold pharmalogic dvt ppx, will do scd instead (3) Neurofibromatosis: Code(s): Q85.00 - Neurofibromatosis, unspecified Status: Acute Additional Plan Acute Hypoxic respiratory failure: patient saturating 60s off of oxygen, labored breathing today compared to yesterday; will obtain stat CT angio PE protocol in light of hypoxia with tachycardia; pulm consulted as may benefit from thoracentesis given rt sided pleural effusion Urosepsis: 3+ leuk esterase in urine; as yet, ecoli growing in urine susceptible to zosyn, and currently on vanc/zosyn; however leukocytosis worsening, 22--29 over last 3 days. No other obvious source of infection - will obtain ID consult; continue LR at 125/hr Tachycardia: sinus tachy on telemetry; possibly related to hypovolemia, but bp actually hypertensive; no beta blockers in outpatient meds, will re-discuss with him today. TSH low at 0.407 and free t4 elevated, started on methimazole yesterday. If continues to be hypertensive, will obtain cardiology consult this afternoon. Microcytic Anemia: appears early stage Anemia chronic disease, as ferritin high & TIBC low; normal B12 & folate; unclear what underlying etiology is; continue SCD for the time being; hgb 10-11, but stable, trend hgb Time Spent With Patient Time with patient: less than 15 minutes Subjective Date/time seen: 04/19/21 07:37 breathing is labored, although patient not feeling comfortable. Review of Systems Review of Systems: All systems reviewed & are unremarkable except as noted in HPI and below Exam Const: General: no acute distress Neck: Neck: no JVD Resp: Effort & Inspection: normal respiratory effort Auscultation: clear to auscultation bilaterally Cardio: Rate: regular rate Rhythm: regular rhythm GI: Inspection: non-distended Objective Data Vital Signs Vital Signs: Vital Signs - 24 hr 04/18/21 08:00 04/18/21 08:06 04/18/21 10:00 Temperature 96.4 F L Pulse Rate 131 H 142 H 142 H Respiratory Rate 22 H Blood Pressure 139/87 Pulse Oximetry 95 95 04/18/21 12:00 04/18/21 12:28 04/18/21 14:00 Temperature 98.7 F Pulse Rate 138 H 142 H 143 H Respiratory Rate 22 H Blood Pressure 144/81 H Pulse Oximetry 98 100 04/18/21 16:00 04/18/21 17:05 04/18/21 18:00 Temperature 96.8 F L Pulse Rate 143 H 150 H 139 H Respiratory Rate 24 H Blood Pressure 155/90 H Pulse Oximetry 97 96 04/18/21 19:00 04/18/21 20:00 04/18/21 21:14 Temperature 96.0 F L Pulse Rate 144 H 141 H 130 H Respiratory Rate 20 Blood Pressure 148/93 H Pulse Oximetry 96 96 04/18/21 21:18 04/18/21 22:00 04/18/21 23:49 Temperature 97 F L Pulse Rate 130 H 138 H 143 H Respiratory Rate 16 Blood Pressure 132/90 Pulse Oximetry 92 99 04/19/21 00:00 04/19/21 02:00 04/19/21 03:51 Temperature 97.3 F L Pulse Rate 140 H 130 H 129 H Respiratory Rate 16 Blood Pressure 159/97 H Pulse Oximetry 99 94 04/19/21 04:00 04/19/21 06:00 Temperature Pulse Rate 137 H 122 H Respiratory Rate Blood Pressure Pulse Oximetry 94 Intake/Output Intake/Output: Intake & Output 04/16/21 04/17/21 04/18/21 04/19/21 23:59 23:59 23:59 23:59 Intake Total 3980 4490 1500 Output Total 350 1250 700 Bal
[2021-04-19] MEDS: DULoxetine HCL 30 MG CAPSULE.DR PO (09:31)
[2021-04-19] MEDS: ACIDOPHILUS/BULGARICUS CHEWABLE TABLET 1 TABLET PO (09:31)
[2021-04-19] MEDS: amLODIPine BESYLATE 5 MG TABLET PO (09:31)
[2021-04-19] MEDS: CHOLECALCIFEROL 1,000 UNITS TABLET 1000 UNITS PO (09:31)
[2021-04-19] MEDS: CYANOCOBALAMIN 500 MCG TABLET PO (09:31)
[2021-04-19] MEDS: methiMAzole 10 MG TAB PO (09:31)
[2021-04-19] MEDS: SILVERGEL (ELTA) 45 ML 1 APPLIC TOPICAL (11:53)
--- NOTE | 2021-04-19 13:58 | WPDINFPN2 ---
Progress Note: A&P Assessment and Plan (1) Acute UTI: Code(s): N39.0 - Urinary tract infection, site not specified Status: Acute Assessment and Plan: 1. UTI 2. Pleural effusion REC Ctx # 1 (antibiotic # 3). Adjust therapy if needed after pleural fluid analysis Subjective Date/time seen: 04/19/21 13:58 Objective Data Vital Signs Vital Signs: Vital Signs - 24 hr 04/18/21 14:00 04/18/21 16:00 04/18/21 17:05 Temperature 36.0 C L Pulse Rate 143 H 143 H 150 H Respiratory Rate 24 H Blood Pressure 155/90 H Pulse Oximetry 97 96 04/18/21 18:00 04/18/21 19:00 04/18/21 20:00 Temperature 35.6 C L Pulse Rate 139 H 144 H 141 H Respiratory Rate 20 Blood Pressure 148/93 H Pulse Oximetry 96 96 04/18/21 21:14 04/18/21 21:18 04/18/21 22:00 Temperature Pulse Rate 130 H 130 H 138 H Respiratory Rate Blood Pressure Pulse Oximetry 92 04/18/21 23:49 04/19/21 00:00 04/19/21 02:00 Temperature 36.1 C L Pulse Rate 143 H 140 H 130 H Respiratory Rate 16 Blood Pressure 132/90 Pulse Oximetry 99 99 04/19/21 03:51 04/19/21 04:00 04/19/21 06:00 Temperature 36.3 C L Pulse Rate 129 H 137 H 122 H Respiratory Rate 16 Blood Pressure 159/97 H Pulse Oximetry 94 94 04/19/21 08:00 04/19/21 08:35 04/19/21 09:52 Temperature 36.6 C Pulse Rate 124 H 127 H 121 H Respiratory Rate 18 Blood Pressure 153/99 H Pulse Oximetry 95 92 04/19/21 10:33 04/19/21 12:00 Temperature 37.1 C Pulse Rate 132 H Respiratory Rate 18 Blood Pressure 177/97 H Pulse Oximetry 99 98 Intake/Output Intake/Output: Intake & Output 04/16/21 04/17/21 04/18/21 04/19/21 23:59 23:59 23:59 23:59 Intake Total 3980 4490 1850 Output Total 350 1250 700 Balance 3630 3240 1150 Meds/Results Medications: Active Medications Generic Name Dose Route Start Last Admin Trade Name Freq PRN Reason Stop Dose Admin Amlodipine Besylate 5 mg 04/18/21 09:00 04/19/21 09:31 Amlodipine Besylate 5 Mg Tablet PO 5 mg DAILY [facility] Administration Budesonide/Formoterol Fumarate 2 puff 04/17/21 20:00 04/19/21 08:32 Budesonide/Form 80-4.5 Mcg (*Sp) INHALATION 2 puff Q12HRT [facility] Administration Cyanocobalamin 500 mcg 04/18/21 09:00 04/19/21 09:31 Cyanocobalamin 500 Mcg Tablet PO 500 mcg DAILY [facility] Administration Diazepam 10 mg 04/17/21 21:00 04/18/21 21:00 Diazepam (*Crx) 10 Mg Tablet PO 10 mg HS [facility] Administration Docusate Sodium 100 mg 04/18/21 09:00 04/19/21 09:36 Docusate Sodium 100 Mg Capsule PO Not Given DAILY [facility] Duloxetine HCl 30 mg 04/18/21 09:00 04/19/21 09:31 Duloxetine Hcl 30 Mg Capsule.Dr PO 30 mg DAILY [facility] Administration Gabapentin 1,200 mg 04/18/21 21:00 04/18/21 21:00 Gabapentin 400 Mg Capsule PO 1,200 mg HS [facility] Administration Lactated Ringer's 1,000 mls @ 125 mls/hr 04/17/21 04:45 04/19/21 04:29 Lr - Lactated Ringers Iv IV CONT 125 mls/hr .Q8H [facility] Administration Lactobacillus Acidophilus 1 tablet 04/18/21 09:00 04/19/21 09:31 Acidophilus/Bulgaricus Chewable Tablet PO 1 tablet DAILY [facility] Administration Methimazole 10 mg 04/18/21 17:35 04/19/21 09:31 Methimazole 10 Mg Tab PO 10 mg DAILY [facility] Administration Ondansetron HCl 4 mg 04/17/21 04:44 Ondansetron Inj 4 Mg/2 Ml Vial IV PUSH Q4H PRN Nausea Silver Nitrate 1 applic 04/18/21 09:00 04/19/21 11:53 Silvergel (Elta) 45 Ml TOPICAL 1 applic DAILY [facility] Administration Tramadol HCl 50 mg 04/17/21 19:05 04/19/21 00:25 Tramadol Hcl (*Crx) 50 Mg Tablet PO 50 mg Q6H PRN Administration Pain Rated 4-6 Trazodone HCl 50 mg 04/17/21 16:54 04/18/21 21:00 Trazodone Hcl 50 Mg Tablet PO 50 mg HS PRN Administration Insomnia Vitamin D 1,000 units 04/18/21 09:00 04/19/21 09:31 Cholecalciferol 1,000 Units Tablet PO 1,000 units DAILY [facility] Administration Radiology Results:
--- NOTE | 2021-04-19 14:52 | PM.CNPUL ---
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 The patient's history in conjunction with the diagnostic studies suggest likely pneumonia with large pleural effusion and lung atelectasis. Patient has marked shortness of breath because of complete lung atelectasis. It is very likely that the pleural effusion is complicated related to infectious process as the patient has increasing leukocytosis despite treatment with antibiotics. Given the shortness of breath, the complete lung atelectasis and the possibility that the effusion is complicated I would recommend chest tube drainage rather than thoracentesis. I would continue with the same antibiotics for now. Further recommendations depending upon the pleural fluid findings. Case was discussed with Dr. Burton. (2) Pleural effusion: Code(s): J90 - Pleural effusion, not elsewhere classified Status: Acute (3) Atelectasis of right lung: Code(s): J98.11 - Atelectasis Status: Acute (4) Neurofibromatosis, type 1: Code(s): Q85.01 - Neurofibromatosis, type 1 Status: Acute History of Present Illness History of Present Illness Consult date: 04/19/21 Chief complaint: Sepsis/UTI/PUI covid/myalgia Narrative: this 45-year-old man with a history of neurofibromatosis type 1 presented with a 2 day history of muscle aches. Patient has neurofibromatosis type 1, previous thoracic spine surgery for scoliosis with insertion of Ledger's rods, paraplegia, and chronic suprapubic indwelling urinary catheter. He was in his usual state of health until approximately 5 days ago when he had the 1st shot of COVID-19 vaccine. Two days later, the patient started to have muscle aches and weakness. He had no fever chest pain or hemoptysis. He reports night sweats for 1 night only. Diagnostic studies since the day of admission showed large right pleural effusion, with associated near complete R lung atelectasis and new infiltrates in the left lung, marked leukocytosis despite treatment with antibiotics. Patient developed shortness of breath and was placed on supplemental oxygen. He developed some abdominal distension but no pain. He had constipation for 3 days. Review of Systems Review of Systems: Patient with neurofibromatosis and paraplegia using wheelchair to get around. He reports no weight changes. He smoked for only 1 year. He has no orthopnea chest pain palpitations or hemoptysis. He had constipation for 3 days. He had enema last night. He has history of lower extremity edema. He has a chronic suprapubic urinary indwelling catheter which is changed every month. He has no history of recurrent UTIs. He has been on nitrofurantoin p.o. presumably for UTI prophylaxis. He has been on ICS Laba inhaler for obstructive airway disease. Previous pulmonary function testing in 2017 was read as mild restrictive and mild obstructive airway disease. [facility] Past Medical History Medical History (Updated 04/19/21 @ 15:06 by Clarence Evans MD) Arthritis COPD (chronic obstructive pulmonary disease) Hx of intermediate use of blood thinners Hypertension Iron deficiency anemia Neurofibromatosis Stroke Surgical History Surgical History (Updated 04/17/21 @ 05:06 by Flor
--- NOTE | 2021-04-19 16:46 | CONS_ITS ---
DATE OF CONSULTATION: 04/19/2021 REASON FOR CONSULTATION: UTI. HISTORY OF PRESENT ILLNESS: 45-year-old male with a neurogenic bladder. He has had previous extensive spinal surgery and has neurofibromatosis. He has a suprapubic catheter changed every month by his report. This was most recently done about 2 weeks prior to admission, and he thinks that the urologist placed the suprapubic catheter too deeply in his bladder as it did cause spasms for him. Sometime thereafter, the patient is very unsure of dates, he developed onset of weakness that was generalized followed by generalized pain, torso, arms, legs. Presented to the emergency room one day before admission, but left without being seen. He returned due to new onset of shortness of breath and ongoing pain. He was admitted. He has been given piperacillin and vancomycin. Consultation requested. No other recent antibiotics by his report. He has no further bladder spasms. The catheter has otherwise been functioning well by his report. His shortness of breath, however, is worse. ALLERGIES: OXYBUTYNIN. HABITS: Social drinker, ex-smoker. PRESENT MEDICATIONS: See above. PAST MEDICAL HISTORY: Prior stroke, iron deficiency anemia, hypertension, COPD, arthritis. REVIEW OF SYSTEMS: 14-point review otherwise negative. FAMILY HISTORY: Without neurofibromatosis by report. SOCIAL HISTORY: Lives locally. Otherwise as per record. PHYSICAL EXAMINATION: GENERAL: This is a middle-aged male who appears in moderate respiratory distress. VITAL SIGNS: Afebrile, has been so since admission, 177/97, 132, 18. SKIN: Warm and dry. No rashes. EENT: The conjunctivae are normal. No icterus. The oral mucosa is normal. NECK: No masses, thyromegaly or meningismus. LUNGS: Diminished breath sounds on the left. Breath sounds vesicular. Clear to percussion. CARDIAC: Tachycardic, regular. No murmurs or gallops. ABDOMEN: Soft, nontender. No masses. No organomegaly. EXTREMITIES: Trace ankle edema. Moves all extremities well. : Has a catheter draining dark yellow urine. LABORATORY DATA: Urine culture with greater than 10 to 15 E coli. I reviewed the susceptibilities. We do not have white blood cell count determinations before 04/16/2021, all have been abnormal, currently 28.9, hemoglobin 10.3, platelets are 369. No differential done today. He has hyponatremia, low chloride, glucose 115, previously normal. Iron and TIBC both low, ferritin high. Normal liver function tests other than albumin 2.5. Urinalysis, multiple abnormalities, which are reviewed. Coronavirus assay nonreactive. Blood cultures, no growth so far. RADIOLOGY: CT of the chest, motion artifact, large right pleural effusion, left lung airspace opacities, masses, right hemithorax, right posterior chest wall chronically. ASSESSMENT: 1. Urinary tract infection associated with recent manipulation of his catheter, above organism identified. 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 2. Leukocytosis, multifactorial due to iron deficiency anemia, physiologic response, urinary tract infection and perhaps chest infection as well. 3. Pleural effusion, right side causing respiratory compromise. RECOMMENDATIONS: 1. Pulmonary Medicine to see regarding the pleural effusion. 2. Ceftriaxone for his community-acquired infection. 3. Adjust his therapy based upon pleural fluid analysis, if need be. 4. 5. Thank you very much for asking me to see him. We will follow up ninfa ALEXX ZARATE M.D. SAND WHEELER SAND WHEELER D I MT: Carlos
--- NOTE | 2021-04-19 21:37 | PHAR ---
HOME MEDICATION VERIFIED BY PHARMACY: AMBIEN 10MG TABLET X 1 TABLET COLOR: YELLOW SHAPE: CAPSULE-SHAPE IMPRINT: 10 MG FORM: ORAL TABLET
[2021-04-19] MEDS: diazePAM (*CRX) 10 MG TABLET PO (22:00)
[2021-04-19] MEDS: GABAPENTIN 400 MG CAPSULE 1200 MG PO (22:00)
[2021-04-19] MEDS: ZOLPIDEM TARTRATE (*CRX) 5 MG TABLET 10 MG PO (22:09)
[2021-04-20] VITALS (27 sets, daily range): BP systolic 82–175; BP diastolic 62–105; PULSE 108–199; RESP 16–29; TEMP 36.1–38.6; O2SAT 89–100
[2021-04-20] MEDS: LACTATED RINGERS 1,000 ML 125 ML IV CONT ×2 (00:11→10:40)
--- NOTE | 2021-04-20 01:56 | PC.NURSE ---
Spoke with Constanza with [facility] transfer center at 0155. Updated on vital signs and patient condition. No bed available at this time.
--- NOTE | 2021-04-20 03:56 | ECG_ITS ---
Measurements Intervals [place] Rate: 206 P: [place]: 0 QRS: 17 QRSD: 94 T: 86 QT: 220 QTc: 407 Interpretive Statements ATRIAL FIBRILLATION WITH RAPID VENTRICULAR RESPONSE INCOMPLETE RIGHT BUNDLE BRANCH BLOCK ST ELEVATION IN ANT/INF LEADS, PROBABLY EARLY REPOLARIZATION ABNORMAL ECG Electronically Signed On 04-20-2021 7:45:56 CDT by Nirmal Montague D.O.
--- NOTE | 2021-04-20 04:03 | PM.IMPN ---
Progress Note: A&P Assessment and Plan (1) Cardiac arrest: Code(s): I46.9 - Cardiac arrest, cause unspecified Status: Acute Assessment and Plan: Initial rhythm was PEA. ROSC achieved Post resuscitation patient with A.Fib with RVR. Will order ECHO Cardiology consult (2) Acute respiratory failure: Code(s): J96.00 - Acute respiratory failure, unspecified whether with hypoxia or hypercapnia Status: Acute Assessment and Plan: On vent support. Sepsis work up in progress Vent management as per CC (3) Atrial fibrillation with RVR: Code(s): I48.91 - Unspecified atrial fibrillation Status: Acute Assessment and Plan: Amiodarone drip. (4) Sepsis: Code(s): A41.9 - Sepsis, unspecified organism Status: Acute Assessment and Plan: Meets criteria on admission with HR 110s and WBC 25.9 Source of infection is UTI - 3+ leuk esterase. Urine culture and Blood cultures ordered, negative so far. Continue CTX empirically until cultures available. LR at 125/hr, cautiously as bp elevated Suspect mild CK elevation related to dehydration (5) Microcytic anemia: Code(s): D50.9 - Iron deficiency anemia, unspecified Status: Acute Assessment and Plan: Hgb 11.3, MCV 73.6 on admission no overt source of bleed obtain iron studies, b12 & folate, reticulocyte, haptoglobin, etc. hold pharmalogic dvt ppx, will do scd instead (6) Neurofibromatosis: Code(s): Q85.00 - Neurofibromatosis, unspecified Status: Acute Additional Plan Acute Hypoxic respiratory failure: patient saturating 60s off of oxygen, labored breathing today compared to yesterday; will obtain stat CT angio PE protocol in light of hypoxia with tachycardia; pulm consulted as may benefit from thoracentesis given rt sided pleural effusion Urosepsis: 3+ leuk esterase in urine; as yet, ecoli growing in urine susceptible to zosyn, and currently on vanc/zosyn; however leukocytosis worsening, 22-26-29 over last 3 days. No other obvious source of infection - will obtain ID consult; continue LR at 125/hr Tachycardia: sinus tachy on telemetry; possibly related to hypovolemia, but bp actually hypertensive; no beta blockers in outpatient meds, will re-discuss with him today. TSH low at 0.407 and free t4 elevated, started on methimazole yesterday. If continues to be hypertensive, will obtain cardiology consult this afternoon. Microcytic Anemia: appears early stage Anemia chronic disease, as ferritin high & TIBC low; normal B12 & folate; unclear what underlying etiology is; continue SCD for the time being; hgb 10-11, but stable, trend hgb Subjective Date/time seen: 04/20/21 04:03 Interval history: Patient is s/p code blue ROSC achieved. Initial rhythm was PEA. Objective Data Vital Signs Vital Signs: Vital Signs - 24 hr 04/19/21 06:00 04/19/21 08:00 04/19/21 08:35 Temperature 97.9 F Pulse Rate 122 H 124 H 127 H Respiratory Rate 18 Blood Pressure 153/99 H Pulse Oximetry 95 92 04/19/21 09:52 04/19/21 10:33 04/19/21 12:00 Temperature 98.7 F Pulse Rate 121 H 132 H Respiratory Rate 18 Blood Pressure 177/97 H Pulse Oximetry 99 98 04/19/21 14:00 04/19/21 15:52 04/19/21 16:00 Temperature Pulse Rate 132 H 127 H Respiratory Rate Blood Pressure Pulse Oximetry 99 04/19/21 16:51 04/19/21 18:00 04/19/21 19:34 Temperature 97.2 F L 100.4 F H Pulse Rate 142 H 130 H 120 H Respiratory Rate 22 H 16 Blood Pressure 147/86 H 141/86 H Pulse Oximetry 98 96 04/19/21 20:00 04/19/21 22:00 04/19/21 23:44 Temperature 97 F L Pulse Rate 125 H 120 H 116 H Respiratory Rate 24 H 16 Blood Pressure 128/88 Pulse Oximetry 96 96 04/20/21 00:00 04/20/21 02:00 Temperature Pulse Rate 119 H 122 H Respiratory Rate Blood Pressure Pulse Oximetry 96 Intake/Output Intake/Output: Intake & Output 04/17/21 04/18/21 04/19/21 04/20/21 23:59 23:59 23:59 23:
--- NOTE | 2021-04-20 04:08 | ED.PROCEDURE ---
Procedures Intubation Intubation Date: 04/20/21 Intubation Time: 03:50 A pre-procedural Time-Out was completed immediately before starting the procedure and confirmed: Patient Identification, Site, Procedure, Patient Position and the Availability of Requisite Equipment: No Laryngoscope: Oli (3) ET tube size: cuffed Tube secured depth (cm): 26 Tube secured location: lips Tube placement confirmation: visualized tube passing through cords, equal breath sounds bilaterally, no breath sounds over epigastrium and confirmation by capnometry Patient tolerated procedure: well Intubation complications: none Other Procedures Procedure 1: Other Procedure: Patient with HR in the 200's persistently s/p ROSC. BP dropped to 60mmHg systolic. Syncronized cardioversion preformed with 100J x 1. HR improved to 115 BPM and systolic BP increased to 102 mmHg. Procedure 2: Other Procedure: CODE BLUE occurred at 3:45 AM. Patient with respiratory arrest that proceeded to cardiac arrest. Arrived with CPR in progress. Patient received multiple low doses of epinephrine. Also received sodium bicarb and IV. See intubation note above. Patient then had return of spontaneous circulation with heart rate in the 200s after receiving a dose of epinephrine. Patient sent to the ICU. See CODE BLUE charting sheet.
--- NOTE | 2021-04-20 04:22 | ECG_ITS ---
Measurements Intervals [place] Rate: 120 P: OR: 0 QRS: 54 QRSD: 88 T: 60 QT: 291 QTc: 412 Interpretive Statements SINUS TACHYCARDIA INCOMPLETE RIGHT BUNDLE BRANCH BLOCK ST ELEVATION IN ANTEROLAT/INF LEADS- PROBABLY EARLY REPOOLARIZATION, PERICARDITIS OR MYOCARDIAL INJURY ABNORMAL ECG Electronically Signed On 04-20-2021 16:12:46 CDT by Nirmal Montague D.O.
--- NOTE | 2021-04-20 04:36 | PC.NURSE ---
Patients only contact, Alberto Faust, called 8 times to notify of change in condition and obtain consent for a central line. No one answers phone and phone will not accept messages.
--- NOTE | 2021-04-20 04:58 | ECG_ITS ---
Measurements Intervals [place] Rate: 129 P: 37 TN: 138 QRS: 23 QRSD: 85 T: 57 QT: 292 QTc: 428 Interpretive Statements SINUS TACHYCARDIA INCOMPLETE RIGHT BUNDLE BRANCH BLOCK LOW QRS VOLTAGE IN LIMB LEADS ST ELEVATION IN ANTEROLAT/INF LEADS- PROBABLY EARLY REPOLARIZATION ABNORMALITY, PERICARDITIS OR MYOCARDIAL INJURY BASELINE ARTIFACT- V5-V6 ABNORMAL ECG Electronically Signed On 04-20-2021 16:14:04 CDT by Nirmal Montague D.O.
[2021-04-20 04:59] LABS: Basophils Absolute Auto 0.1 K/mm3 (0.0-0.1); Basophils Percent Auto 0.5 % (0.2-1.2); Hematocrit 30.9 % (42.0-52.0); Hemoglobin 9.9 g/dL (14.0-18.0); Immature Granulocyte Absolute 1.64 K/mm3 (0.00-0.031); Immature Granulocyte Percent A 5.8 % (0-0.5); Lymphocytes Absolute Auto 2.15 K/mm3 (0.9-3.2); Lymphocytes Percent Auto 7.6 % (18.3-44.2); Mean Corpuscular Hemoglobin 23.5 pg (26-34); Mean Corpuscular Volume 73.4 fl (80-100); Mean Platelet Volume 9.5 fl (7.4-10.4); Monocytes Absolute Auto 3.9 K/mm3 (0.1-0.6); Monocytes Percent Auto 13.6 % (2.6-8.5); Neutrophils Absolute Auto 20.5 K/mm3 (1.3-6.7); Neutrophils Percent Auto 72.5 % (45.5-73.1); Nucleated Red Blood Cells Absolute Auto 0.2 K/mm3 (0.0-0.012); Nucleated Red Blood Cells Perc 0.6 % (0.0-0.2); Platelet Count Result 478 k/mm3 (150-375); Red Blood Count 4.21 M/mm3 (4.6-6.20); Red Cell Distribution Width 22.4 % (11.5-14.5); White Blood Count 28.3 K/mm3 (4.5-10.0)
[2021-04-20 05:34] LABS: Hypochromasia 1+ (NORMAL); Platelet Estimate Adequate (Adequate); Poikilocytosis 1+ (NORMAL)
--- NOTE | 2021-04-20 05:55 | ECG_ITS ---
Measurements Intervals [place] Rate: 125 P: 42 IA: 132 QRS: 43 QRSD: 87 T: 59 QT: 285 QTc: 412 Interpretive Statements SINUS TACHYCARDIA INCOMPLETE RIGHT BUNDLE BRANCH BLOCK ST ELEVATION IN ANTEROLAT/INF LEADS- PROBABLY EARLY REPOLARIZATION ABNORMALITY, PERICARDITIS OR MYOCARDIAL INJURY BASELINE ARTIFACT- V5 ABNORMAL ECG Electronically Signed On 04-20-2021 16:14:55 CDT by Nirmal Montague D.O.
[2021-04-20 06:01] LABS: Glucose Point of Care 83 mg/dl (65-105)
[2021-04-20] MEDS: SILVER NITRATE (*SP) STICK 1 EACH TOPICAL (06:15)
--- NOTE | 2021-04-20 06:19 | WPDPROCEDUR ---
Procedures Central Line Placement Right IJ: Central Line Date: 04/20/21 Central Line Time: 05:30 Performed Emergently - Given emergent patient condition, temporal constraints may have precluded informed consent.: Yes Time Out Performed: Yes Patient Position: trendelenburg Patient placed on monitor/pulse ox: Yes Provider Prep: mask, sterile gown, sterile gloves, Max. sterile barrier precautions, cap and hand hygiene with conventional soap/water or alcohol based hand rub Central line prep: 2% Chlorhexidine scrub Local anesthesia used: other anesthetic Sterile US Technique with sterile gel/sterile probe covers: Yes Central line lumen inserted: triple Length (cm): 16 Depth of Insertion (cm): 15 Post Procedure: sutured in place, good blood return, all ports aspirated, flushed, capped, hemostatic product, securement product and aseptic technique maintained throughout procedure Post procedure x-ray: tip of catheter in good position and no pneumothorax seen Patient tolerated procedure: well and no complications Complications: none Additional comments: Dr. Fournier, was present throughout the procedure for proctoring.
[2021-04-20 06:38] LABS: Alanine Aminotransferase 28 U/L (4-50); Albumin Level 2.9 g/dL (3.5-5.1); Alkaline Phosphatase 117 U/L (38-126); Anion Gap 10 mmol/L (8-16); Aspartate Amino Transferase 54 U/L (17-59); Bilirubin,Total 0.3 mg/dL (0.2-1.3); Blood Urea Nitrogen 28 mg/dL (9-20); Calcium 8.3 mg/dL (8.4-10.2); Carbon Dioxide 29 mmol/L (22-30); Chloride 96 mmol/L (98-107); Estimated CRCL calculation 73 ml/min; Estimated Glomerular Filt Rate > 60; Glucose 116 mg/dL (65-110); Magnesium 2.2 mg/dL (1.6-2.3); Phosphorus 5.4 mg/dL (2.5-4.5); Sodium 135 mmol/L (137-145)
[2021-04-20 06:44] LABS: Troponin I < 0.012 ng/mL (0.000-0.034)
[2021-04-20] MEDS: SODIUM CHLORIDE 0.9% IV 500 ML 999 ML IV CONT (07:00)
[2021-04-20 07:38] LABS: INR 1.1; Prothrombin Time 13.9 Seconds (11.1-14.7)
[2021-04-20 07:39] LABS: Partial Thromboplastin Time 28.8 SECONDS (22.3-36.8)
--- NOTE | 2021-04-20 07:39 | PC.NURSE ---
0415 pt heart rate 198 and blood pressure 69/57. Dr Ch and Dr Ibarra notified. Synchronized cardioversion per Dr Ibarra at 100J. Pt cardioverted from afib to aflutter heart rate 132 and blood pressure 102/73.
[2021-04-20 07:58] LABS: Alveolar/Arterial O2 Gradient 479.2 mmHg; Base Excess ABG 2.2 mEq/l (+/-2.0); Fractional Inspired Oxygen 90 %; HCO3 ABG 27.7 mEq/l (22.0-26.0); Oxygen Content ABG 14.7 %vol (16.0-22.0); Oxygen Saturation ABG 98.1 % (95.0-100.0); Oxyhemoglobin 96.7 % THb (90.0-100.0); PCO2 ABG 47.4 mmHg (35.0-45.0); PO2 ABG 113.9 mmHg (80.0-100.0); PO2 FiO2 Ratio Arterial Blood 1.27 %; Total Hemoglobin 10.7 g/dL (12.0-18.0); pH ABG 7.385 (7.350-7.450)
[2021-04-20 07:59] LABS: Device VENTILATOR; Modified Allen's Test Pass; Site Drawn RIGHT RADIAL
[2021-04-20 08:00] LABS: Arterial Blood Gas PEEP 5 cmH2O; Arterial Blood Gas Tidal Volume 350 ml; Arterial Blood Gas Vent Mode CMV; Arterial Blood Gas Ventilator rate 16 /MIN
--- NOTE | 2021-04-20 08:08 | PC.NURSE ---
color television console monitor showed patient bradycardic at 0338. Nurse went to assess patient. Patient agonally breathing. Patient lost pulse and CPR initiated at 0340. ROSC at 0352. See code blue sheet for code details. Patient transferred to ICU department.
--- NOTE | 2021-04-20 08:50 | PM.CNCAR ---
Assessment and Plan Assessment and plan (1) Cardiac arrest: Code(s): I46.9 - Cardiac arrest, cause unspecified Status: Acute Assessment and Plan: Status post cardiopulmonary arrest, initially a PEA arrest, perhaps related to respiratory failure. Hypertensive but Hemodynamically stable at this time. (2) Abnormal EKG: Code(s): R94.31 - Abnormal electrocardiogram [ECG] [EKG] Status: Acute Assessment and Plan: EKG shows some ST elevation inferiorly and particularly laterally which is not typical for a STEMI. Reviewed with Dr. Arteaga who agrees. Surprisingly the 1st troponin is negative; I would not be surprised if he has are elevated troponins based on his cardiac arrest. EKG changes May be nonspecific post resuscitation changes or perhaps pericarditis, since the patient has adjacent pneumonia and empyema. Obtain echocardiogram No need for emergent cardiac catheterization (3) Atrial fibrillation with RVR: Code(s): I48.91 - Unspecified atrial fibrillation Status: Acute Assessment and Plan: Transient AFib RVR after resuscitation and epinephrine. Currently in sinus tachycardia No need for amiodarone at this time. (4) Pneumonia: Qualifiers: Pneumonia type: due to unspecified organism Laterality: bilateral Lung location: unspecified part of lung Qualified Code(s): J18.9 - Pneumonia, unspecified organism Code(s): J18.9 - Pneumonia, unspecified organism Status: Acute Assessment and Plan: Admitted with pneumonia and sepsis, possible empyema. Respiratory failure on ventilator On antibiotics. History of Present Illness History of Present Illness Consult date/time: 04/20/21 08:50 Requesting physician: Martha Ch MD Consult reason: Other (abnormal EKG, s/p cardiopulm arrest) Reason For Visit: Sepsis/UTI/PUI covid/myalgia Narrative: Mohit Powell is a 45-year-old male paraplegic who was admitted with sepsis, pneumonia, probable empyema. He had a cardiopulmonary arrest early this morning. I have been asked to see him at the request of Dr. Hall for my advice and opinion regarding his EKG changes in consultation. The patient was admitted on April 17 through the emergency room complaining of diffuse pain. He appeared septic with pneumonia and has been seen by Dr. Medina and Dr. Evans. Early this morning he became bradycardic and had a PEA arrest. He was resuscitated with CPR and received rounds of epinephrine, and intubated. He had AFib RVR heart rate 206 and was emergently cardioverted to sinus tachycardia. He is in the intensive care unit, not requiring pressors. He has some diffuse ST changes on his EKG. No prior history of heart disease. He apparently has a history of hypertension, COPD, stroke and is a former smoker. H/o DVT and IVC filter. He has had multiple back surgeries for his neurofibromatosis and is paraplegic. Review of Systems Review of Systems: Review of systems was obtained from the patient's EMR nurse and the facilities director. ROS unobtainable: Yes unobtainable due to endotracheal tube, unobtainable due to medical condition and unobtainable due to mental status Constitutional: Constitutional: Reports body ache(s) (Admitted with pain all over from the emergency room) Eyes: Eyes: Reports no additional eye complaints ENT: Denies epistaxis Cardiovascular: Cardiovascular: Denies chest pain and Denies leg edema Respiratory: Respiratory: Reports dyspnea Gastrointestinal: Gastrointestinal: Denies abdominal pain and Denies hematochezia Genitourinary: Genitourinary: Reports as per HPI (Has a suprapubic catheter) Musculoskeletal: Musculoskeletal: Reports myalgias (Diffuse body pain on admission) Comments: Paraplegic, apparently wheelchair bound Integumentary/Breasts
[2021-04-20] MEDS: DORNASE ALFA INH SOLN 1 MG/ML 2.5 ML AMP 2.5 MG INHALATION ×2 (08:52→23:01)
--- NOTE | 2021-04-20 09:52 | WPDCNINT ---
Assessment and Plan Assessment and plan (1) Cardiac arrest: Code(s): I46.9 - Cardiac arrest, cause unspecified Status: Acute Assessment and Plan: Cardiac arrest could be multifactorial bradycardia with PEA arrest. Could be related to aspiration, pneumonia, large pleural effusion, hypoxia, possibility of a PE, possible ACS -ROSC approximately 12 minutes per documentation -patient did have atrial fibrillation with RVR, hypotensive and was cardioverted x1 sinus tachycardia -appreciate cardiology evaluation recommendation -1st set of troponins were negative, EKG post arrest showed ST elevations inferiorly, general superintendent thinks the EKG she is very nonspecific post cardiac arrest and post resuscitation. -will obtain a echocardiogram (2) Acute respiratory failure: Code(s): J96.00 - Acute respiratory failure, unspecified whether with hypoxia or hypercapnia Status: Acute Assessment and Plan: Acute respiratory failure likely related to cardiac arrest and or respiratory failure causing a cardiac arrest. -possibility of aspiration, PE -will obtain CT PE protocol -patient also has a large right pleural effusion (3) Atrial fibrillation with RVR: Code(s): I48.91 - Unspecified atrial fibrillation Status: Acute Assessment and Plan: Atrial fibrillation with RVR could be related to epinephrine patient was given due to the code -status post cardioversion x1 with conversion to sinus tachycardia -no need for amiodarone at this time per Cardiology (4) Pleural effusion: Code(s): J90 - Pleural effusion, not elsewhere classified Status: Acute Assessment and Plan: Large right pleural effusion which has been there since admission causing atelectasis of the right lung -patient probably has complicated effusion versus loculated effusion, CT surgery at [facility] has accepted the patient and await bed placement -effusion could also be empyema given signs of sepsis -if patient's mental status improves will have Interventional Radiology do a thoracentesis with placement of a pigtail catheter (5) Pneumonia: Qualifiers: Pneumonia type: due to unspecified organism Laterality: bilateral Lung location: unspecified part of lung Qualified Code(s): J18.9 - Pneumonia, unspecified organism Code(s): J18.9 - Pneumonia, unspecified organism Status: Acute Assessment and Plan: Patient could also have pneumonia given his elevated white blood cell count -also have aspirated causing aspiration pneumonitis -antibiotics have been switched to vancomycin and Zosyn (6) Sepsis: Code(s): A41.9 - Sepsis, unspecified organism Status: Acute Assessment and Plan: Given elevated WBC count, respiratory failure, tachycardia -check lactic acid -blood pressures have been stable will continue to monitor -urine output has been adequate will continue to monitor, -creatinine bumped up to 1.3 from 0.8 (on 04/20) -patient IV fluids and remains on maintenance IV fluids (7) Acute UTI: Code(s): N39.0 - Urinary tract infection, site not specified Status: Acute Assessment and Plan: E coli UTI, pansensitive, continue Zosyn (8) Neurofibromatosis: Code(s): Q85.00 - Neurofibromatosis, unspecified Status: Acute Assessment and Plan: Chronic issue (9) Iron deficiency anemia: Code(s): D50.9 - Iron deficiency anemia, unspecified Status: Acute Assessment and Plan: Stable hemoglobin, will continue to monitor and transfuse as needed (10) DVT prophylaxis: Code(s): Z29.9 - Encounter for prophylactic measures, unspecified Status: Acute Assessment and Plan: DVT prophylaxis: Will add Lovenox (11) Dietary counseling and surveillance: Code(s): Z71.3 - Dietary counseling and surveillance Status: Acute Assessment and Plan: GI prophylaxis: Protonix Additional Plan Will discuss with angela
[2021-04-20] MEDS: MINERAL OIL/WHITE PETROLATUM OINTMENT 1 APPLIC EACH EYE ×2 (10:42→20:10)
--- NOTE | 2021-04-20 11:15 | PM.PNPUL ---
Progress Note: A&P Assessment and Plan (1) Acute respiratory failure: Qualifiers: Respiratory failure complication: hypoxia Qualified Code(s): J96.01 - Acute respiratory failure with hypoxia Code(s): J96.00 - Acute respiratory failure, unspecified whether with hypoxia or hypercapnia Status: Acute Assessment and Plan: it is unclear what precipitated cardio respiratory arrest. Patient was not transferred to tertiary center for chest tube drainage of pleural fluid as he coded. Respiratory status unchanged since yesterday. The right lung remains atelectatic, related to large pleural effusion and large neurofibroma. Leukocytosis persists despite coverage with antibiotics. The patient is hemodynamically stable on no vasoactive pressors or sedatives. Will need to repeat the CT PA to exclude pulmonary embolism. consider interventional Radiology consultation for right chest drainage with pigtail catheter under CT guidance. Case was discussed with the commissions specialist. 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 He has been intubated on 60% FiO2 PEEP of 5, tidal volume of 380. Has been hemodynamically stable on no vasopressors. Also not on sedatives. Opening eyes to verbal commands but not communicating. Review of Systems Review of Systems: All systems reviewed & are unremarkable except as noted in HPI and below (H &P and below) Exam Narrative: GENERAL APPEARANCE: Patient intubated on mechanical ventilation, opening eyes to verbal commands and other stimuli but not communicating. SKIN: Inspection of the skin reveals multiple neurofibromas in upper extremities, old ulcerations and chronic stasis dermatitis changes in lower extremities. HEENT: Sclerae anicteric and conjunctivae pink and moist. NECK: Supple. There was no thyroid enlargement CHEST: Normal AP diameter with asymmetric chest wall expansion bilaterally LUNGS: Auscultation of the lungs decreased breath sounds right chest posteriorly, tubular sounds left chest posteriorly. CARDIAC: There was a regular rate and rhythm without any murmurs, gallops, rubs. ABDOMEN: distended, soft and tympanitic, there was no organomegaly. EXTREMITIES: No clubbing or edema. NEUROLOGIC: Opening eyes to verbal commands and painful stimuli not communicating, not moving extremities. Objective Data Vital Signs Vital Signs: Vital Signs - 24 hr 04/19/21 12:00 04/19/21 14:00 04/19/21 15:52 Temperature 37.1 C Pulse Rate 132 H 132 H Respiratory Rate 18 Blood Pressure 177/97 H Pulse Oximetry 98 99 04/19/21 16:00 04/19/21 16:51 04/19/21 18:00 Temperature 36.2 C L Pulse Rate 127 H 142 H 130 H Respiratory Rate 22 H Blood Pressure 147/86 H Pulse Oximetry 98 04/19/21 19:34 04/19/21 20:00 04/19/21 22:00 Temperature 38.0 C H Pulse Rate 120 H 125 H 120 H Respiratory Rate 16 24 H Blood Pressure 141/86 H Pulse Oximetry 96 96 04/19/21 23:44 04/20/21 00:00 04/20/21 02:00 Temperature 36.1 C L Pulse Rate 116 H 119 H 122 H Respiratory Rate 16 Blood Pressure 128/88 Pulse Oximetry 96 96 04/20/21 04:00 04/20/21 06:00 04/20/21 08:00 Temperature 36.7 C Pulse Rat
[2021-04-20] MEDS: ENOXAPARIN 40 MG/0.4 ML SYRINGE SUB-Q (11:41)
[2021-04-20] MEDS: PANTOPRAZOLE SODIUM IV 40 MG VIAL IV PUSH (11:42)
[2021-04-20 11:47] LABS: Lactic Acid Reflex 1.4 mmol/L (0.7-2.1)
[2021-04-20] MEDS: SILVERGEL (ELTA) 45 ML 1 APPLIC TOPICAL (17:04)
[2021-04-20] MEDS: CENTRAL LINE FLUSH 10 ML IV PUSH ×4 (17:09→22:34)
--- NOTE | 2021-04-20 19:24 | PM.IMPN ---
Progress Note: A&P Assessment and Plan (1) Abnormal EKG: Code(s): R94.31 - Abnormal electrocardiogram [ECG] [EKG] Status: Acute (2) Atrial fibrillation with RVR: Code(s): I48.91 - Unspecified atrial fibrillation Status: Acute (3) Acute respiratory failure: Qualifiers: Respiratory failure complication: hypoxia Qualified Code(s): J96.01 - Acute respiratory failure with hypoxia Code(s): J96.00 - Acute respiratory failure, unspecified whether with hypoxia or hypercapnia Status: Acute (4) Cardiac arrest: Code(s): I46.9 - Cardiac arrest, cause unspecified Status: Acute (5) Neurofibromatosis, type 1: Code(s): Q85.01 - Neurofibromatosis, type 1 Status: Acute (6) Atelectasis of right lung: Code(s): J98.11 - Atelectasis Status: Acute (7) Pleural effusion: Code(s): J90 - Pleural effusion, not elsewhere classified Status: Acute (8) Pneumonia: Qualifiers: Pneumonia type: due to unspecified organism Laterality: bilateral Lung location: unspecified part of lung Qualified Code(s): J18.9 - Pneumonia, unspecified organism Code(s): J18.9 - Pneumonia, unspecified organism Status: Acute (9) Microcytic anemia: Code(s): D50.9 - Iron deficiency anemia, unspecified Status: Acute (10) Sepsis: Qualifiers: Sepsis type: sepsis due to unspecified organism Sepsis acute organ dysfunction status: with acute organ dysfunction Severe sepsis acute organ dysfunction type: acute respiratory failure Acute respiratory failure type: with hypoxia Severe sepsis shock status: without septic shock Qualified Code(s): A41.9 - Sepsis, unspecified organism; R65.20 - Severe sepsis without septic shock; J96.01 - Acute respiratory failure with hypoxia Code(s): A41.9 - Sepsis, unspecified organism Status: Acute (11) Anemia in chronic illness: Code(s): D63.8 - Anemia in other chronic diseases classified elsewhere Status: Acute (12) Acute UTI: Code(s): N39.0 - Urinary tract infection, site not specified Status: Acute (13) Leukocytosis: Qualifiers: Leukocytosis type: unspecified Qualified Code(s): D72.829 - Elevated white blood cell count, unspecified Code(s): D72.829 - Elevated white blood cell count, unspecified Status: Acute (14) Thrombocytosis: Code(s): D75.839 - Thrombocytosis, unspecified Status: Acute (15) Hyponatremia: Code(s): E87.1 - Hypo-osmolality and hyponatremia Status: Acute (16) Hyperphosphatemia: Code(s): E83.39 - Other disorders of phosphorus metabolism Status: Acute (17) Abnormal thyroid function test: Code(s): R94.6 - Abnormal results of thyroid function studies Status: Acute Additional Plan Discussed patient's condition with significant other at bedside. Currently patient is on IV antibiotics with Pulmonary, Infectious Diseases, Cardiology and Critical Care on board. Continue IV antibiotics Prognosis is guarded Will need to reach out pretty appropriate p.o. daily or next of kin for further goals of care discussion Time Spent With Patient Time with patient: 25 - 35 minutes Subjective Date/time seen: 04/20/21 19:24 Interval history: 45-year-old male with past medical history significant for neurofibromatosis, COPD, borderline diabetes, iron-deficiency anemia with prior history of CVA presented with generalized weakness and fatigue after having received his 1st dose of COVID vaccine. He was being managed as a case of sepsis possibly secondary to UTI and pneumonia. He was also noted to have large right-sided pleural effusion for which reason he was supposed to be transferred to [facility] for PleurX catheter placement. A.m. of 04/20 patient was noted to have had episode of bradycardia leading up PEA arrest. While the cord was being run he was also noted to be transiently in AFib with RV
[2021-04-21] VITALS (13 sets, daily range): BP systolic 131–172; BP diastolic 83–103; PULSE 111–127; RESP 16–26; TEMP 36.8–37.2; O2SAT 92–100
[2021-04-21] MEDS: hydrALAZINE HCL 20 MG/ML VIAL 10 MG IV PUSH (00:08)
[2021-04-21] MEDS: LACTATED RINGERS 1,000 ML 75 ML IV CONT (02:37)
[2021-04-21] MEDS: CENTRAL LINE FLUSH 10 ML IV PUSH (05:47)
[2021-04-21 06:11] LABS: Alveolar/Arterial O2 Gradient 235.7 mmHg; Base Excess ABG 6.1 mEq/l (+/-2.0); Carboxyhemoglobin 0.3 % THb (0-2.0); Fractional Inspired Oxygen 50 %; HCO3 ABG 29.4 mEq/l (22.0-26.0); Methemoglobin ABG 0.3 %THb (0-1.5); Oxygen Content ABG 14.3 %vol (16.0-22.0); Oxygen Saturation ABG 96.7 % (95.0-100.0); Oxyhemoglobin 94.6 % THb (90.0-100.0); PCO2 ABG 37.3 mmHg (35.0-45.0); PO2 ABG 78.8 mmHg (80.0-100.0); PO2 FiO2 Ratio Arterial Blood 1.58 %; Reduced Hemoglobin 4.8 %THb (0-5.0); Total Hemoglobin 10.7 g/dL (12.0-18.0)
[2021-04-21 06:12] LABS: Device VENTILATOR; Modified Allen's Test Pass; Site Drawn RIGHT RADIAL; pH ABG 7.514 (7.350-7.450)
[2021-04-21 06:13] LABS: Arterial Blood Gas PEEP 5 cmH2O; Arterial Blood Gas Tidal Volume 350 ml; Arterial Blood Gas Vent Mode CMV; Arterial Blood Gas Ventilator rate 16 /MIN
[2021-04-21 06:32] LABS: Hematocrit 28.6 % (42.0-52.0); Hemoglobin 9.6 g/dL (14.0-18.0); Mean Corpuscular HGB Conc 33.6 g/dl (32-36); Mean Corpuscular Hemoglobin 24.1 pg (26-34); Mean Corpuscular Volume 71.9 fl (80-100); Mean Platelet Volume 9.7 fl (7.4-10.4); Platelet Count Result 397 k/mm3 (150-375); Red Blood Count 3.98 M/mm3 (4.6-6.20); Red Cell Distribution Width 21.2 % (11.5-14.5); White Blood Count 24.1 K/mm3 (4.5-10.0)
[2021-04-21 07:14] LABS: Alanine Aminotransferase 26 U/L (4-50); Albumin Level 2.9 g/dL (3.5-5.1); Alkaline Phosphatase 117 U/L (38-126); Anion Gap 7 mmol/L (8-16); Aspartate Amino Transferase 36 U/L (17-59); Bilirubin,Total 0.4 mg/dL (0.2-1.3); Blood Urea Nitrogen 23 mg/dL (9-20); Calcium 8.5 mg/dL (8.4-10.2); Carbon Dioxide 34 mmol/L (22-30); Chloride 96 mmol/L (98-107); Estimated CRCL calculation 94 ml/min; Estimated Glomerular Filt Rate > 60; Glucose 107 mg/dL (65-110); Lactic Acid Reflex 1.4 mmol/L (0.7-2.1); Magnesium 2.1 mg/dL (1.6-2.3); Phosphorus 2.5 mg/dL (2.5-4.5); Potassium 3.9 mmol/L (3.4-5.0); Sodium 137 mmol/L (137-145)
[2021-04-21] MEDS: ENOXAPARIN 40 MG/0.4 ML SYRINGE SUB-Q (08:52)
[2021-04-21] MEDS: MINERAL OIL/WHITE PETROLATUM OINTMENT 1 APPLIC EACH EYE (08:52)
[2021-04-21] MEDS: PANTOPRAZOLE SODIUM IV 40 MG VIAL IV PUSH (08:53)
[2021-04-21] MEDS: SILVERGEL (ELTA) 45 ML 1 APPLIC TOPICAL (08:56)
[2021-04-21] MEDS: PROPOFOL IV EMULSION 100 ML 2.98 MG IV CONT (09:29)
--- NOTE | 2021-04-21 11:36 | WPDINTPN ---
Progress Note: A&P Assessment and Plan (1) Cardiac arrest: Code(s): I46.9 - Cardiac arrest, cause unspecified Status: Acute Assessment and Plan: Cardiac arrest could be multifactorial bradycardia with PEA arrest. Could be related to aspiration, pneumonia, large pleural effusion, hypoxia, possibility of a PE, possible ACS -ROSC approximately 12 minutes per documentation -patient did have atrial fibrillation with RVR, hypotensive and was cardioverted x1 sinus tachycardia -appreciate cardiology evaluation recommendation -troponins negative x2, EKG post arrest showed ST elevations inferiorly, cover assembler thinks the EKG she is very nonspecific post cardiac arrest and post resuscitation. -echocardiogram has been ordered and pending -patient opens his eyes, follows simple commands in upper extremities (2) Acute respiratory failure: Qualifiers: Respiratory failure complication: hypoxia Qualified Code(s): J96.01 - Acute respiratory failure with hypoxia Code(s): J96.00 - Acute respiratory failure, unspecified whether with hypoxia or hypercapnia Status: Acute Assessment and Plan: Acute respiratory failure likely related to cardiac arrest and or respiratory failure causing a cardiac arrest. -possibility of aspiration, PE -CT PE protocol 04/20/2021 : No large central pulmonary embolism, patchy bilateral airspace disease with pain represent pneumonia and/or atelectasis, large right and small left pleural effusion, small amount of ascites -patient currently intubated on CMV mode of ventilation, peep of 5, 50% FiO2 -continue bronchodilators and Pulmozyme -sedation started this morning after patient was awake and was following commands (3) Atrial fibrillation with RVR: Code(s): I48.91 - Unspecified atrial fibrillation Status: Acute Assessment and Plan: Atrial fibrillation with RVR could be related to epinephrine patient was given due to the code -status post cardioversion x1 with conversion to sinus tachycardia -no need for amiodarone at this time per Cardiology (4) Pleural effusion: Code(s): J90 - Pleural effusion, not elsewhere classified Status: Acute Assessment and Plan: Large right pleural effusion which has been there since admission causing atelectasis of the right lung -patient probably has complicated effusion versus loculated effusion, CT surgery at [facility] has accepted the patient. -effusion could also be empyema given signs of sepsis -if patient's mental status improves will have Interventional Radiology do a thoracentesis with placement of a pigtail catheter -[facility] call back in a loaded a bed for him for him in the surgical ICU, patient be transferred today to [facility] (5) Pneumonia: Qualifiers: Pneumonia type: due to unspecified organism Laterality: bilateral Lung location: unspecified part of lung Qualified Code(s): J18.9 - Pneumonia, unspecified organism Code(s): J18.9 - Pneumonia, unspecified organism Status: Acute Assessment and Plan: Patient could also have pneumonia given his elevated white blood cell count -also have aspirated causing aspiration pneumonitis -antibiotics have been switched to vancomycin and Zosyn (6) Sepsis: Qualifiers: Acute respiratory failure type: with hypoxia Sepsis acute organ dysfunction status: with acute organ dysfunction Sepsis type: sepsis due to unspecified organism Severe sepsis acute organ dysfunction type: acute respiratory failure Severe sepsis shock status: without septic shock Qualified Code(s): A41.9 - Sepsis, unspecified organism; R65.20 - Severe sepsis without septic shock; J96.01 - Acute respiratory failure with hypoxia Code(s): A41.9 - Sepsis, unspecified organism Status: Acute Assessment and Plan: Given elevated WBC count, respiratory failure, tachycardia -check lactic acid -blood pressures have bee
--- NOTE | 2021-04-21 13:16 | PM.IMPN ---
Progress Note: A&P Assessment and Plan (1) Sepsis: Qualifiers: Sepsis type: sepsis due to unspecified organism Sepsis acute organ dysfunction status: with acute organ dysfunction Severe sepsis acute organ dysfunction type: acute respiratory failure Acute respiratory failure type: with hypoxia Severe sepsis shock status: without septic shock Qualified Code(s): A41.9 - Sepsis, unspecified organism; R65.20 - Severe sepsis without septic shock; J96.01 - Acute respiratory failure with hypoxia Code(s): A41.9 - Sepsis, unspecified organism Status: Acute (2) Abnormal thyroid function test: Code(s): R94.6 - Abnormal results of thyroid function studies Status: Acute (3) Thrombocytosis: Code(s): D75.839 - Thrombocytosis, unspecified Status: Acute (4) Leukocytosis: Qualifiers: Leukocytosis type: unspecified Qualified Code(s): D72.829 - Elevated white blood cell count, unspecified Code(s): D72.829 - Elevated white blood cell count, unspecified Status: Acute (5) Abnormal EKG: Code(s): R94.31 - Abnormal electrocardiogram [ECG] [EKG] Status: Acute (6) Atrial fibrillation with RVR: Code(s): I48.91 - Unspecified atrial fibrillation Status: Acute (7) Acute respiratory failure: Qualifiers: Respiratory failure complication: hypoxia Qualified Code(s): J96.01 - Acute respiratory failure with hypoxia Code(s): J96.00 - Acute respiratory failure, unspecified whether with hypoxia or hypercapnia Status: Acute (8) Cardiac arrest: Code(s): I46.9 - Cardiac arrest, cause unspecified Status: Acute (9) Neurofibromatosis, type 1: Code(s): 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.01 - Neurofibromatosis, type 1 Status: Acute (10) Atelectasis of right lung: Code(s): J98.11 - Atelectasis Status: Acute (11) Pleural effusion: Code(s): J90 - Pleural effusion, not elsewhere classified Status: Acute (12) Pneumonia: Qualifiers: Pneumonia type: due to unspecified organism Laterality: bilateral Lung location: unspecified part of lung Qualified Code(s): J18.9 - Pneumonia, unspecified organism Code(s): J18.9 - Pneumonia, unspecified organism Status: Acute (13) Microcytic anemia: Code(s): D50.9 - Iron deficiency anemia, unspecified Status: Acute (14) Acute UTI: Code(s): N39.0 - Urinary tract infection, site not specified Status: Acute (15) Metabolic alkalosis: Code(s): E87.3 - Alkalosis Status: Acute Additional Plan Spoke to patient's son at bedside. He is to be transferred to [facility] for further management and placement of right-sided PleurX catheter. He is to continue IV antibiotics and possibly with the addition of Levaquin for hospital-acquired pneumonia. Time Spent With Patient Time with patient: 15 - 25 minutes Subjective Date/time seen: 04/21/21 13:16 Interval history: 45-year-old male with past medical history significant for neurofibromatosis, COPD, borderline diabetes, iron-deficiency anemia with prior history of CVA presented with generalized weakness and fatigue in addition to SOB after having received his 1st dose of COVID vaccine. He was initially managed as a case of sepsis possibly secondary to UTI and pneumonia and was also found to have large right-sided pleural effusion. A.m. of 04/20 ana cid was called after patient was noted to have had episode of bradycardia leading up PEA arrest. During the course of the code, he was noted to be transiently in AFib with RVR as well. He was intubated and moved to the ICU. An EKG was obtained at the time of cardiac arrest which was suspicious for ST elevation in certain leads however this was reviewed by waste water treatment plant operator and troponin was also noted to be within normal limits. Overnight patient was noted to have a T-max of 101.5?. He is being continued on IV vanc and Zosyn noted to have some impro
--- NOTE | 2021-04-21 14:07 | PC.NURSE ---
1300- Patient transferred to [facility] via [facility]. Report was called to Patricia PERRY . Son Jackson at bedside , belongings sent with son were patients prescription eyeglasses.
[2021-04-21 16:53] LABS: Haptoglobin 390 mg/dL (43-212)
--- NOTE | 2021-05-12 23:25 | PM.TDS ---
Transfer Discharge Sum: Prov Provider Date of admission: 04/18/21 09:24 Primary care physician: Timothy Brar, Admitting clinician: Martha Ch MD Consults: 04/19/21 Consult to Physician Routine Comment: md is notified Consulting Provider: Reid Medina call center agent/MD group to consult: infectious disease Reason for consultation: sepsis w/ inc wbc despite abx Has provider been notified: Yes 04/19/21 14:00 Consult to Physician Routine Comment: md is aware of the consult Consulting Provider: Clarence Evans call center agent/MD group to consult: pulmonology Reason for consultation: labored respiration & hypoxia Has provider been notified: Yes 04/20/21 Consult to Physician Routine Comment: Consulting Provider: Sabrina Andrade Reason for consultation: Ventilator post cardiac arrest Has provider been notified: Yes Consult to Physician Routine Comment: Consulting Provider: Yudelka Tay call center agent/MD group to consult: Cardiology Reason for consultation: Cardiac arrest/a.fib woith RVR Has provider been notified: Yes DS: Admitting Diagnosis Discharge Date 04/21/21 Admitting Diagnosis ACute hypoxic respiratory failure DS: Discharge Diagnosis Discharge Diagnosis (1) Sepsis: Qualifiers: Sepsis type: sepsis due to unspecified organism Sepsis acute organ dysfunction status: with acute organ dysfunction Severe sepsis acute organ dysfunction type: acute respiratory failure Acute respiratory failure type: with hypoxia Severe sepsis shock status: without septic shock Qualified Code(s): A41.9 - Sepsis, unspecified organism; R65.20 - Severe sepsis without septic shock; J96.01 - Acute respiratory failure with hypoxia Code(s): A41.9 - Sepsis, unspecified organism Status: Acute (2) Cardiac arrest: Code(s): I46.9 - Cardiac arrest, cause unspecified Status: Acute (3) Acute respiratory failure: Qualifiers: Respiratory failure complication: hypoxia Qualified Code(s): J96.01 - Acute respiratory failure with hypoxia Code(s): J96.00 - Acute respiratory failure, unspecified whether with hypoxia or hypercapnia Status: Acute Transfer Discharge Sum: Med Medications Active and Home Medications: Home Medications Lactobacillus acidophilus 680 mg PO DAILY 04/10/21 [History Confirmed 04/17/21] acetaminophen 500 mg capsule 500 mg PO Q6H PRN 10/20/21 [History Confirmed 04/17/21] amlodipine 5 mg tablet 5 mg PO DAILY 04/10/21 [History Confirmed 04/17/21] budesonide-formoterol HFA 80 mcg-4.5 mcg/actuation aerosol inhaler 2 puff INHALATION Q12H 04/10/21 [History Confirmed 04/17/21] cholecalciferol (vitamin D3) 25 mcg (1,000 unit) capsule 25 mcg PO DAILY 04/10/21 [History Confirmed 04/17/21] cyanocobalamin (vitamin B-12) 500 mcg lozenges 500 mcg PO DAILY 04/10/21 [History Confirmed 04/17/21] diazepam 5 mg tablet 10 mg PO HS 04/10/21 [History Confirmed 04/17/21] docusate sodium 100 mg capsule 100 mg PO DAILY 04/10/21 [History Confirmed 04/17/21] duloxetine 30 mg capsule,delayed release 90 mg PO DAILY 04/10/21 [History Confirmed 04/17/21] gabapentin 600 mg tablet 1,200 mg PO HS 04/10/21 [History Confirmed 04/17/21] lancets 04/10/21 [History Confirmed 04/20/21] methocarbamol 500 mg tablet 500 mg PO QPM 04/10/21 [History Confirmed 04/17/21] nitrofurantoin 100 mg capsule 100 mg PO Q12H 04/10/21 [History Confirmed 04/17/21] rizatriptan 10 mg tablet See Rx Instructions PO .COMPLEX 04/10/21 [History Confirmed 04/17/21] tolterodine 4 mg capsule,extended release 24 hr 4 mg PO DAILY 04/10/21 [History Confirmed 04/17/21] trazodone 50 mg tablet 50 mg PO QHS PRN 04/10/21 [History Confirmed 04/17/21] zolpidem 10 mg tablet 10 mg PO QHS PRN 04/10/21 [History Confirmed 04/17/21] acetaminophen 1,300 mg PO Q8H PRN 04/17/21 [History Confirmed 04/17/21] Transfer Discharge Sum: Hosp Hospital Course Hospital course: 45-year-old male with past medical history signifi
== END 2021-04-21 13:30 | disposition short-term general hospital (02) | DRG 871 ==
LOC: ANHED 02:06 → ANHIMU 05:01 → ANHICU 04-20 07:53 → ANHIMU 04-24 12:49
PROVIDERS: Internal Medicine; Admitting Provider Internal Medicine; Emergency Provider General Practice; PCP Internal Medicine; Visit Provider Internal Medicine
DX: A41.9 Sepsis, unspecified organism (principal); J96.01 Acute respiratory failure with hypoxia; I46.9 Cardiac arrest, cause unspecified; J18.9 Pneumonia, unspecified organism; J69.0 Pneumonitis due to inhalation of food and vomit; J86.9 Pyothorax without fistula; J98.11 Atelectasis; N39.0 Urinary tract infection, site not specified; J90 Pleural effusion, not elsewhere classified; E87.3 Alkalosis; J44.0 Chronic obstructive pulmonary disease with (acute) lower respiratory infection; G82.20 Paraplegia, unspecified; E87.1 Hypo-osmolality and hyponatremia; R65.20 Severe sepsis without septic shock; B96.20 Unspecified Escherichia coli [E. coli] as the cause of diseases classified elsewhere; Z20.822 Contact with and (suspected) exposure to COVID-19; I48.91 Unspecified atrial fibrillation; D75.839 Thrombocytosis, unspecified; R00.1 Bradycardia, unspecified; D72.829 Elevated white blood cell count, unspecified; D63.8 Anemia in other chronic diseases classified elsewhere; R94.6 Abnormal results of thyroid function studies; E83.39 Other disorders of phosphorus metabolism; D50.9 Iron deficiency anemia, unspecified; R94.31 Abnormal electrocardiogram [ECG] [EKG]; E86.0 Dehydration; M19.90 Unspecified osteoarthritis, unspecified site; Q85.01 Neurofibromatosis, type 1; Z86.73 Personal history of transient ischemic attack (TIA), and cerebral infarction without residual deficits; Z87.891 Personal history of nicotine dependence
CPT/HCPCS: 31500; 36415; 36600; 71045; 71260; 71275; 72125; 80053; 81001; 82375; 82550; 82607; 82728; 82746; 82805; 82948; 83010; 83050; 83540; 83550; 83605; 83615; 83735; 83880; 84100; 84439; 84443; 84466; 84480; 84484; 85025; 85027; 85046; 85610; 85730; 86140; 86900; 86901; 87040; 87077; 87086; 87088; 87186; 87804; 92950; 93005; 94002; 94003; 94640; 96361; 96365; 96367; 96375; 96376; 99223; 99232; 99285; A9270; C1751; C9113; C9803; G0378; J0131; J0171; J0360; J0696; J1170; J1650; J2270; J2405; J2543; J2704; J3370; J7030; J7040; J7120; Q9967; U0003; U0005